=== PATIENT | male | born 1935 | race Caucasian/White ===

== ENCOUNTER 2017-03-18 09:42 | Inpatient (IN) | payer MEDICARE, OTHER ==
[~2017-03-18] VITALS: Ht 185.4 cm; Wt 87.1 kg
[~2017-03-18 09:42] MED LIST: B-121000 MCG PO; CEFDINIR300 MG PO; CO Q-1010 MG PO; ENBREL50 MG/1 ML INJ; FOLIC ACID1 MG PO; JOINT ADVANTAGE GOLD PO; METHOTREXATE2.5 MG PO; MONTELUKAST SOD10 MG PO; PREDNISONE5 MG PO; SPIRIVA18 MCG INH; SUPER B COMPLE1 EACH PO; TRIAMCINOLONE A15 G4 TP; VITAMIN D1000 UNI1 PO; XARELTO20 MG PO
[2017-03-18] MEDS ORDERED: IBUPROFEN 400 MG TAB PO STA (09:55)
[2017-03-18] MEDS ORDERED: SODIUM CHLORIDE 0.9% 1000ML 1,000 ML IV STA (10:50)
[2017-03-18] MEDS ORDERED: ALBUTEROL/IPRATROPIUM 3 ML NEB NEB ONE (11:00)
[2017-03-18] MEDS ORDERED: CEFTRIAXONE SOD 1 GM VIAL IV ONE (11:00)
[2017-03-18] MEDS ORDERED: OSELTAMIVIR PHOSPHATE 75 MG CAP PO ONE (11:30)
[2017-03-18] MEDS ORDERED: AZITHROMYCIN 500MG/NS 250 ML 250 ML IV ONE (11:30)
--- NOTE | 2017-03-18 11:47 | Diagnostic Imaging Report ---
EXAM: XR CHEST 2 VIEWS DATE: 03/18/2017 9:55 AM INDICATION: COMPARISON: 04/24/2015 FINDINGS: Lines and Tubes: None Heart and Mediastinum: No acute findings. Lungs and Pleura: Minimal atelectasis/scarring in the lung bases. On the lateral view there is a retrocardiac opacity that is overall stable. Bones and Soft Tissues: No acute findings. IMPRESSION: 1. No acute cardiopulmonary findings. Signed by: Dr. Rafael Gonzales MD on 03/18/2017 11:43 AM
[2017-03-18 13:10] LABS: BASOPHILS % 0.3 % (0.0-1.0); EOSINOPHILS % 0.3 % (0.0-6.0); HEMATOCRIT 27.5 % (38.2-49.6); LYMPHOCYTES # (AUTO) 1.2 (1.0-3.2); LYMPHOCYTES % 14.5 % (18.0-39.1); MEAN CORPUSCULAR HEMOGLOBIN 29.9 pg (28-32); MEAN CORPUSCULAR HGB CONC 32.7 g/dL (31-35); MEAN CORPUSCULAR VOLUME 91.4 fL (81-99); MONOCYTES # (AUTO) 0.7 (0.2-0.8); MONOCYTES % 8.2 % (4.4-11.3); NEUTROPHILS % 75.9 % (38.7-80.0); PLATELET COUNT 93 x10e3/uL (140-360); RED BLOOD COUNT 3.01 x10e6/uL (4.3-5.7); RED CELL DISTRIBUTION WIDTH 18.5 % (11.7-14.4)
[2017-03-18] MEDS ORDERED: SODIUM CHLORIDE 0.9% 1000ML 1,000 ML IV SCH (13:30)
[2017-03-18 13:36] LABS: ALBUMIN 2.9 g/dL (3.5-5.0); ALBUMIN/GLOBULIN RATIO 1.2 (0.8-2.0); ANION GAP 12.5 mmol/L (8-16); CALCIUM 8.3 mg/dL (8.4-10.2); CREATININE, SERUM 1.88 mg/dL (0.72-1.25); POTASSIUM 3.5 mmol/L (3.5-5.1)
[2017-03-18 13:44] LABS: CREATINE KINASE MB 1.1 ng/mL (0.00-5.00); TROPONIN I 0.126 ng/mL (0-0.300)
[2017-03-18] MEDS ORDERED: AZITHROMYCIN 500MG/SOD CHL 0.9% 250ML BAG IV SCH (14:30)
[2017-03-18] MEDS: SODIUM CHLORIDE 0.9% 1000ML 1,000 ML IV SCH ×2 (14:55→23:22)
[2017-03-18] MEDS: ALBUTEROL SULF 0.083% NEB SOLN 3 ML NEB NEB SCH ×3 (15:00→23:00)
[2017-03-18] MEDS ORDERED: HYDROCORTISONE SOD SUCCINATE 100 MG VIAL IV ONE (15:00)
[2017-03-18] MEDS ORDERED: CENTRUM SILVER1 EAC3 PO (16:38)
[2017-03-18] MEDS: IPRATROPIUM BROMIDE 0.02% 2.5 ML NEB NEB SCH (19:00)
[2017-03-18] MEDS: HYDROCORTISONE SOD SUCCINATE 100 MG VIAL IV SCH (22:50)
[2017-03-18] MEDS: OSELTAMIVIR PHOSPHATE 75 MG CAP PO SCH (22:50)
[2017-03-19] VITALS: BP 166/101
[2017-03-19] MEDS: ALBUTEROL SULF 0.083% NEB SOLN 3 ML NEB NEB SCH ×6 (00:01→19:30)
[2017-03-19] MEDS: IPRATROPIUM BROMIDE 0.02% 2.5 ML NEB NEB SCH ×4 (01:00→19:30)
[2017-03-19] MEDS: CEFTRIAXONE SOD 1 GM VIAL IV SCH ×2 (03:53→16:11)
[2017-03-19 05:10] LABS: BASOPHILS % 0.1 % (0.0-1.0); EOSINOPHILS % 0.1 % (0.0-6.0); HEMATOCRIT 31.6 % (38.2-49.6); HEMOGLOBIN 10.1 g/dL (14.0-18.0); LYMPHOCYTES # (AUTO) 0.7 (1.0-3.2); LYMPHOCYTES % 6.7 % (18.0-39.1); MEAN CORPUSCULAR HEMOGLOBIN 29.9 pg (28-32); MEAN CORPUSCULAR VOLUME 93.5 fL (81-99); MONOCYTES # (AUTO) 0.5 (0.2-0.8); NEUTROPHILS # (AUTO) 8.8 (2.1-6.9); NEUTROPHILS % 87.5 % (38.7-80.0); PLATELET COUNT 91 x10e3/uL (140-360); RED BLOOD COUNT 3.38 x10e6/uL (4.3-5.7); RED CELL DISTRIBUTION WIDTH 18.8 % (11.7-14.4)
[2017-03-19 05:28] LABS: ANION GAP 14.4 mmol/L (8-16); CALCIUM 8.4 mg/dL (8.4-10.2); CREATININE, SERUM 1.65 mg/dL (0.72-1.25)
[2017-03-19 05:33] LABS: POTASSIUM 4.4 mmol/L (3.5-5.1)
[2017-03-19] MEDS: SODIUM CHLORIDE 0.9% 1000ML 1,000 ML IV SCH (06:28)
[2017-03-19 06:39] LABS: CREATINE KINASE MB 3.7 ng/mL (0.00-5.00); TROPONIN I 0.057 ng/mL (0-0.300)
[2017-03-19] MEDS: HYDROCORTISONE SOD SUCCINATE 100 MG VIAL IV SCH (07:00)
--- NOTE | 2017-03-19 07:32 | Diagnostic Imaging Report ---
Examination: Single AP view of the chest. COMPARISON: Chest 2 views 03/18/2017 INDICATION: Pneumonia IMPRESSION: 1. Lines and Tubes: None 2. Lungs are well-inflated. Interval development of multiple linear opacities in the left lower lung, likely representing subsegmental atelectasis. The previously described left retrocardiac opacity is not as clearly visualized in this frontal view. No other areas of consolidation. Recommend chest PA and lateral, if clinically indicated. 3. Cardiomediastinal silhouette is normal. Pulmonary vasculature is normal. 4. No acute bony abnormalities. Signed by: Dr. Franko Walker M.D. on 03/19/2017 7:29 AM
[2017-03-19] MEDS: OSELTAMIVIR PHOSPHATE 75 MG CAP PO SCH ×2 (09:00→18:46)
[2017-03-19 09:46] LABS: CHOL/HDL RATIO 3.3 (3.9-4.7)
--- NOTE | 2017-03-19 10:08 | History and Physical ---
PRIMARY CARE PHYSICIAN: Dr. Schmid. CHIEF COMPLAINT: Shortness of breath. HISTORY OF PRESENT ILLNESS: An 81-year-old man with a history of emphysema, now developing shortness of breath and cough. Here he is placed on BiPAP and he is admitted for further evaluation and management here. He does have a history of emphysema. PAST MEDICAL HISTORY: Rheumatoid arthritis, hypertension, emphysema, cigarette abuse, hearing deficit. PAST SURGICAL HISTORY: Back and colon with no history of colon cancer. ALLERGIES: Per electronic medical records. FAMILY HISTORY/SOCIAL HISTORY: The patient is a . He has 3 children. Occasional alcohol. He quit cigarettes. ALLERGIES: NO KNOWN DRUG ALLERGIES. MEDICATIONS: Per electronic medical records. REVIEW OF SYSTEMS: Denies any dizziness. PHYSICAL EXAMINATION VITAL SIGNS: Reviewed. Temperature 100.1, pulse 94, blood pressure 76/37. T max is 103.4. GENERAL APPEARANCE: A tired-appearing man resting in the bed. HEENT: Anicteric. . CARDIOVASCULAR: Normal S1 and S2. LUNGS: Mildly coarse reduced breath sounds throughout. No wheezing. ABDOMEN: Soft and nontender. Nondistended. EXTREMITIES: There is no edema or calf tenderness. NEUROLOGIC: Alert and oriented x3. Moving all extremities. SKIN: Dry. PSYCHIATRIC: Flat affect. LABS: Reviewed. MEDICATIONS: Reviewed. ASSESSMENT AND PLAN: An 81-year-old man. 1. Severe sepsis with acute kidney injury. Will continue antibiotics and give fluids as needed. 2. Acute exacerbation of emphysema. Will continue oxygen support and BiPAP support. 3. Acute respiratory failure/ positive influenza screen. Will use Tamiflu and use antibiotics . Continue BiPAP support. Pulmonary consultation. Will obtain sputum cultures and blood cultures. 4. Hypernatremia, resolving. 5. Hyperglycemia. Will screen for diabetes. 6. Acute kidney injury. Continue to follow. Seems to be improving. 7. Over weight state. Will screen for diabetes . 8. Prophylaxis: Will use heparin and Pepcid. DISPOSITION: Monitor closely. Continue BiPAP support. Pulmonary consultation. Job#: [id number]
[2017-03-19] MEDS: AZITHROMYCIN 500MG/NS 250 ML 250 ML IV SCH (12:36)
[2017-03-19 13:28] LABS: CREATINE KINASE MB 3.4 ng/mL (0.00-5.00); TROPONIN I 0.043 ng/mL (0-0.300)
[2017-03-19 16:45] VITALS: BP 138/72
[2017-03-19 17:30] VITALS: BP_SYST 138; BP_SYST 142; BP_DIAS 72; BP_DIAS 76
[2017-03-19 18:00] VITALS: BP 155/75
[2017-03-19] MEDS: FAMOTIDINE 20 MG/2 ML VIAL IV SCH (18:39)
[2017-03-19] MEDS: MONTELUKAST SODIUM 10 MG TAB PO SCH (18:39)
[2017-03-19] MEDS: ALPRAZOLAM 0.25 MG TAB PO SCH (21:00)
[2017-03-19] MEDS ORDERED: HEPARIN SOD (PORCINE) 5,000 UNIT/ML VIAL SC SCH (21:00)
[2017-03-19] MEDS: METHYLPREDNISOLONE SOD SUCC 40 MG/ML VIAL IV SCH (21:00)
[2017-03-20] VITALS: BP 125/61
[2017-03-20] MEDS: IPRATROPIUM BROMIDE 0.02% 2.5 ML NEB NEB SCH ×4 (00:01→19:45)
[2017-03-20] MEDS: CEFTRIAXONE SOD 1 GM VIAL IV SCH ×3 (01:00→12:20)
[2017-03-20] MEDS: ALBUTEROL SULF 0.083% NEB SOLN 3 ML NEB NEB SCH ×5 (03:01→19:45)
[2017-03-20] MEDS: ALPRAZOLAM 0.25 MG TAB PO SCH ×3 (06:00→21:05)
--- NOTE | 2017-03-20 06:44 | Diagnostic Imaging Report ---
CHEST 2 VIEWS, Technique: CHEST 2 VIEWS Comparison: 03/19/2017 Clinical history: Dyspnea, congestion DISCUSSION: Right costophrenic angle is excluded. Otherwise stable appearance of the heart, mediastinum, lungs and pleural spaces. Unchanged hyperinflation with bibasilar linear areas of scarring/atelectasis. IMPRESSION: Stable chest without acute abnormality Signed by: Dr Suzanna Covington MD on 03/20/2017 6:40 AM
[2017-03-20 06:50] LABS: HEMATOCRIT 27.1 % (38.2-49.6); HEMOGLOBIN 8.6 g/dL (14.0-18.0); LYMPHOCYTES # (AUTO) 0.3 (1.0-3.2); MEAN CORPUSCULAR HEMOGLOBIN 29.4 pg (28-32); MEAN CORPUSCULAR HGB CONC 31.7 g/dL (31-35); MEAN CORPUSCULAR VOLUME 92.5 fL (81-99); MONOCYTES # (AUTO) 0.2 (0.2-0.8); MONOCYTES % 2.4 % (4.4-11.3); NEUTROPHILS # (AUTO) 6.5 (2.1-6.9); NEUTROPHILS % 92.7 % (38.7-80.0); PLATELET COUNT 85 x10e3/uL (140-360); RED BLOOD COUNT 2.93 x10e6/uL (4.3-5.7); RED CELL DISTRIBUTION WIDTH 18.7 % (11.7-14.4)
[2017-03-20 07:09] LABS: ALBUMIN 2.7 g/dL (3.5-5.0); ANION GAP 13.3 mmol/L (8-16); CALCIUM 7.8 mg/dL (8.4-10.2); CREATININE, SERUM 1.49 mg/dL (0.72-1.25); POTASSIUM 4.3 mmol/L (3.5-5.1)
[2017-03-20] MEDS: TIOTROPIUM 18 MCG INH POWDER INH SCH (07:15)
--- NOTE | 2017-03-20 07:17 | Consultation ---
DATE OF CONSULTATION: PULMONARY/CRITICAL CARE CONSULTATION REFERRING PHYSICIAN: Dr. Froylan Hernandez ATTENDING PHYSICIAN: Dr. Urias HISTORY OF PRESENT ILLNESS: The patient is an 81-year-old man. He has a vague history of respiratory problems. He uses a nebulizer at home along with some type of rescue inhaler. He does not have oxygen at home. For the past several weeks, he has had increased cough and congestion. He complains of more malaise. He went to see his primary doctor several times and received antibiotics without much benefit. He now comes to the emergency department complaining of worsening dyspnea and cough. He has no fevers. PAST SURGICAL HISTORY: 1. Status post back surgery. 2. Status post colon surgery. 3. Status post eye surgery. MEDICAL HISTORY: 1. Rheumatoid arthritis that has been treated with methotrexate and Enbrel. 2. History of unspecified respiratory problems. Patient denies any prior cardiac history. ALLERGIES: THERE ARE NO KNOWN DRUG ALLERGIES. SOCIAL HISTORY: The patient quit smoking 25 years ago. He is not a drinker. FAMILY HISTORY: Family history is noncontributory. REVIEW OF SYSTEMS: The patient does not have any fevers. He is not complaining of headache or sinus congestion. There is no sore throat. He is not having any neck pain. He does not have any chest pain or discomfort. He does note some dyspnea and some cough. There is no abdominal pain. There is no nausea or vomiting. There is no leg edema. PHYSICAL EXAMINATION: VITAL SIGNS: Patient is afebrile. The vital signs are stable. HEENT: Showed no facial swelling or erythema. The nasal mucosa is normal. The oropharynx is normal. LYMPHATIC: Showed no submandibular, cervical, or supraclavicular adenopathy. CARDIAC: Revealed a regular rate and rhythm with a normal S1 and S2. There are no murmurs or rubs. CHEST: Auscultation of lungs revealed prolonged expiratory phase with rhonchus breath sounds bilaterally. ABDOMEN: Soft and nontender. There is no rebound or guarding. EXTREMITIES: There is no leg edema or calf tenderness. There is no cyanosis or clubbing. SKIN: Showed no rashes. NEUROLOGICAL: Showed no focal abnormalities. LABORATORY DATA: Nasal swab showed influenza. The creatinine is 1.65. Other electrolytes are within normal limits. The BNP is 597. Hemoglobin is 10.1. IMPRESSIONS: 1. Influenza. 2. Chronic obstructive pulmonary disease with acute exacerbation. 3. Possible congestive heart failure as indicated by the elevated B-type natriuretic peptide. PLAN: 1. Tamiflu. 2. Low-dose Solu-Medrol. 3. Bronchodilators. 4. Echocardiogram. 5. Possible cardiology evaluation. Thank you. Job#: [id number]
[2017-03-20] MEDS: FAMOTIDINE 20 MG/2 ML VIAL IV SCH ×3 (08:35→17:00)
[2017-03-20] MEDS: METHYLPREDNISOLONE SOD SUCC 40 MG/ML VIAL IV SCH ×3 (08:35→21:05)
[2017-03-20] MEDS: RIVAROXABAN 20 MG TABLET PO SCH (08:35)
[2017-03-20] MEDS: FOLIC ACID 1 MG TAB PO SCH (08:35)
--- NOTE | 2017-03-20 08:45 | Progress Note ---
DATE: March 20, 2017 PULMONARY PROGRESS NOTE The patient feels better today. He is off the BiPAP and on a nasal cannula. He has less congestion and less cough. OBJECTIVE VITAL SIGNS: Stable. The patient is afebrile. HEENT: Shows no facial swelling or erythema. The oral mucosa is normal. LYMPHATICS: Shows no submandibular, cervical or supraclavicular adenopathy. CARDIAC: Reveals a regular rate and rhythm with a normal S1 and S2. There are no murmurs or rubs. LUNGS: Auscultation of the lungs reveal prolonged expiratory phase, but clear breath sounds bilaterally. ABDOMEN: Soft and nontender. There is no rebound or guarding. EXTREMITIES: Shows no leg edema or calf tenderness. There is no cyanosis or clubbing. SKIN: Shows no rashes. NEUROLOGICAL: Shows no focal abnormalities. IMPRESSION 1. Influenza. 2. Chronic obstructive pulmonary disease with acute exacerbation. 3. Elevated BNP that has improved. PLAN 1. Continue Tamiflu and antibiotics. 2. Taper steroids. 3. Await echocardiogram. 4. Wean oxygen. 5. Bronchodilators. Job#: [id number] [place]
[2017-03-20 09:45] VITALS: BP 140/76
[2017-03-20] MEDS: OSELTAMIVIR PHOSPHATE 75 MG CAP PO SCH ×2 (10:19→17:00)
[2017-03-20] MEDS: AZITHROMYCIN 500MG/NS 250 ML 250 ML IV SCH (13:38)
[2017-03-20 14:57] VITALS: BP 155/79
[2017-03-20 15:50] LABS: ABG HCO3 19 mmol/L (23-28); ABG PCO2 36 mmHg (41-51); ABG PH 7.34 (7.31-7.41); ABG PO2 104 mmHg (80-105)
[2017-03-20] MEDS: RISPERIDONE 0.5 MG TAB PO SCH (17:00)
[2017-03-20] MEDS: MONTELUKAST SODIUM 10 MG TAB PO SCH (17:00)
[2017-03-20] MEDS: GUAIFENESIN 600 MG TAB PO PRN (17:06)
[2017-03-20 20:00] VITALS: BP 169/76
[2017-03-20] MEDS ORDERED: ZIPRASIDONE 20 MG VIAL IM PRN (23:15)
[2017-03-20] MEDS ORDERED: LORAZEPAM INJ 2 MG/ML VIAL IV PRN (23:15)
[2017-03-21] MEDS: IPRATROPIUM BROMIDE 0.02% 2.5 ML NEB NEB SCH ×4 (00:10→19:42)
[2017-03-21] MEDS: ALBUTEROL SULF 0.083% NEB SOLN 3 ML NEB NEB SCH ×7 (00:10→23:00)
[2017-03-21] MEDS: CEFTRIAXONE SOD 1 GM VIAL IV SCH ×2 (01:00→12:36)
[2017-03-21] MEDS ORDERED: ZIPRASIDONE 20 MG VIAL IM STA (05:48)
[2017-03-21] MEDS ORDERED: LORAZEPAM INJ 2 MG/ML VIAL IV ONE (06:00)
[2017-03-21] MEDS: TIOTROPIUM 18 MCG INH POWDER INH SCH (06:00)
[2017-03-21] MEDS: ALPRAZOLAM 0.25 MG TAB PO SCH (06:00)
[2017-03-21 07:22] LABS: HEMATOCRIT 29.6 % (38.2-49.6); HEMOGLOBIN 9.3 g/dL (14.0-18.0); LYMPHOCYTES # (AUTO) 0.3 (1.0-3.2); LYMPHOCYTES % 4.5 % (18.0-39.1); MEAN CORPUSCULAR HEMOGLOBIN 29.2 pg (28-32); MEAN CORPUSCULAR HGB CONC 31.4 g/dL (31-35); MEAN CORPUSCULAR VOLUME 93.1 fL (81-99); MONOCYTES # (AUTO) 0.1 (0.2-0.8); MONOCYTES % 1.4 % (4.4-11.3); NEUTROPHILS % 93.6 % (38.7-80.0); PLATELET COUNT 91 x10e3/uL (140-360); RED BLOOD COUNT 3.18 x10e6/uL (4.3-5.7); RED CELL DISTRIBUTION WIDTH 18.1 % (11.7-14.4)
[2017-03-21 07:44] LABS: ANION GAP 15.2 mmol/L (8-16); CALCIUM 8.3 mg/dL (8.4-10.2); CREATININE, SERUM 1.43 mg/dL (0.72-1.25); MAGNESIUM 1.9 MG/DL (1.3-2.1); POTASSIUM 4.2 mmol/L (3.5-5.1)
[2017-03-21] MEDS: METHYLPREDNISOLONE SOD SUCC 40 MG/ML VIAL IV SCH (08:33)
[2017-03-21] MEDS: FAMOTIDINE 20 MG/2 ML VIAL IV SCH ×2 (08:33→16:15)
[2017-03-21] MEDS: FOLIC ACID 1 MG TAB PO SCH (08:52)
[2017-03-21] MEDS: RIVAROXABAN 20 MG TABLET PO SCH (09:00)
[2017-03-21] MEDS ORDERED: ZIPRASIDONE 20 MG VIAL IM NR (10:15)
[2017-03-21] MEDS: OSELTAMIVIR PHOSPHATE 75 MG CAP PO SCH ×2 (10:17→16:27)
[2017-03-21] MEDS: RISPERIDONE 0.5 MG TAB PO SCH ×2 (10:17→16:27)
[2017-03-21] MEDS: AZITHROMYCIN 500MG/NS 250 ML 250 ML IV SCH (12:36)
[2017-03-21] MEDS ORDERED: AZITHROMYCIN 250 MG TAB PO SCH (12:45)
[2017-03-21] MEDS ORDERED: DEXTROSE 50% SYRINGE 50 ML IV PRN (12:45)
[2017-03-21] MEDS: CEFUROXIME AXETIL 250 MG TAB PO SCH ×2 (14:24→21:00)
[2017-03-21] MEDS: ALPRAZOLAM 0.25 MG TAB PO PRN (14:25)
--- NOTE | 2017-03-21 15:15 | Diagnostic Imaging Report ---
History:Agitation, confusion Comparison studies:MRI brain 04/26/2015 Technique: Axial images were obtained from the skull base to the vertex. Coronal and sagittal images reconstructed from the axial data. Intravenous contrast: None Findings: Scalp/skull: No abnormalities. Extra-axial spaces: No masses. No fluid collections. Brain sulci: Mildly prominent. Ventricles: Mild compensatory dilatation. No hydrocephalus. Parenchyma: Cortical based hypodensity at the right lateral lingula/cuneus, right mid frontal gyrus and right superior parietal lobule with associated volume loss. Scattered small hypodensities in the supratentorial white matter are small vessel ischemic changes. No masses, hemorrhage or acute cortical vascular insults. Sellar/suprasellar region: No abnormalities. Craniocervical junction: Patent foramen magnum. No Chiari one malformation. Incidental findings: Atherosclerotic calcifications in the carotid siphons and vertebral . Impression: No acute abnormalities. Chronic findings: 1. Mild generalized volume loss. 2. Mild supratentorial white matter small vessel ischemic changes. 3. 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 on 03/21/2017 3:11 PM
[2017-03-21] MEDS: MONTELUKAST SODIUM 10 MG TAB PO SCH (16:27)
[2017-03-21] MEDS: INSULIN LISPRO 100 UNIT/1 ML 3ML VIAL SQ SCH ×2 (16:30→21:00)
[2017-03-21] MEDS ORDERED: LORAZEPAM INJ 2 MG/ML VIAL IM ONE (16:45)
[2017-03-21] MEDS: PREDNISONE 10 MG TAB PO SCH (17:00)
[2017-03-21] MEDS ORDERED: PREDNISONE 20 MG TAB PO SCH ×2 (17:00)
[2017-03-21] MEDS ORDERED: ZIPRASIDONE 20 MG VIAL IM PRN ×2 (17:30→17:45)
--- NOTE | 2017-03-21 18:19 | Consultation ---
DATE OF CONSULTATION: March 21, 2017 PSYCHIATRIC INITIAL CONSULT REASON FOR CONSULTATION: For treatment and evaluation of the patient's confusion and agitation. HISTORY OF PRESENTING ILLNESS: The patient is an 81-year-old male who is admitted to [facility] due to multiple medical problems. Psychiatric consult is called to evaluate the patient's confusion and agitation. Upon evaluation today, the patient is found to be lying on his bed. He is alert and awake, but confused. He is very restless. He is trying to pick his skin and trying to pull his IV lines out. He is hard to redirect. He does not know where he is. He does not know what events led to his current hospitalization. He is not able to participate for a complete psychiatric assessment at this time. Collateral information is obtained from his daughter who was present in the room during this assessment. Daughter reports that the patient has been increasingly confused and agitated since he has been in the hospital. He has been paranoid and trying to hurt the staff. He is also making suicidal threats. Daughter reports that the patient is not confused at his baseline. This confusion has only started since he has been in the hospital. Daughter also reported that the patient is usually independent in his daily activities and is able to take care of himself alone. As per the nursing staff, the patient has been combative, agitated and threatening the staff, and the family members he is not redirectable. PAST PSYCHIATRIC HISTORY: The patient has never been treated by a psychiatrist in the past. He has never been diagnosed with dementia. He drinks alcohol socially. FAMILY HISTORY: The patient does not have any family history of psychiatric illness. SOCIAL HISTORY: The patient currently lives alone and is independent in his daily activities. CURRENT LABS: WBC 6.42, hemoglobin 9.3, hematocrit 29.6, platelets 91,000. Sodium 141. Potassium 4.2. Chloride 111. Carbon dioxide 19. BUN 24, creatinine 1.43. AST 45, ALT 29, alkaline phosphatase 204. CURRENT IMAGING: CT scan of the brain is unremarkable for any acute changes. CURRENT MEDICATIONS: 1. Albuterol nebulizer 2. Xanax 0.25 q.8 h. p.r.n. 3. Azithromycin. 4. Ceftin. 5. Pepcid. 6. Folic acid. 7. Mucinex. 8. Humalog. 9. Tamiflu. 10. Prednisone. 11. Risperdal 0.5 mg p.o. b.i.d. MENTAL STATUS EXAMINATION: The patient is an elderly male who is currently lying on his bed. He is alert, awake and oriented to only self. He is very restless and easily agitated. He is confused. He is not able to participate for a complete mental status examination at this time. IMPRESSION AXIS I: Unspecified psychosis; delirium; multifactorial, most likely because of an infection; Rule out dementia. AXIS II: Deferred. AXIS III: As per medical history. AXIS IV: Severe. AXIS V: GAF is 25. RECOMMENDATIONS: Based on this clinical assessment, the patient appears to be confused and delirious due to multiple medical problems. Following are the recommendations for now: 1. Add Seroquel 25 mg p.o. nightly. 2. Add Seroquel 25 mg p.o. q.6 h. p.r.n. for agitation. 3. Discontinue Risperdal. 4. Add Geodon 10 mg IM q.6 h. p.r.n. for agitation. 5. We will continue to follow this patient during his inpatient stay for management of his psychiatric symptoms. Thank you very much for this consult. Job#: [id number]
[2017-03-21 20:30] VITALS: BP 143/68
[2017-03-21] MEDS ORDERED: QUETIAPINE FUMARATE 25 MG TAB PO SCH (21:00)
[2017-03-22] VITALS: BP 156/82
[2017-03-22] MEDS: IPRATROPIUM BROMIDE 0.02% 2.5 ML NEB NEB SCH ×4 (01:00→19:05)
[2017-03-22] MEDS: ALBUTEROL SULF 0.083% NEB SOLN 3 ML NEB NEB SCH ×6 (03:00→23:00)
[2017-03-22] MEDS: TIOTROPIUM 18 MCG INH POWDER INH SCH (06:00)
[2017-03-22 06:48] LABS: HEMATOCRIT 29.9 % (38.2-49.6); HEMOGLOBIN 9.5 g/dL (14.0-18.0); LYMPHOCYTES # (AUTO) 1.1 (1.0-3.2); LYMPHOCYTES % 14.5 % (18.0-39.1); MEAN CORPUSCULAR HEMOGLOBIN 29.1 pg (28-32); MEAN CORPUSCULAR HGB CONC 31.8 g/dL (31-35); MEAN CORPUSCULAR VOLUME 91.7 fL (81-99); MONOCYTES # (AUTO) 0.1 (0.2-0.8); MONOCYTES % 0.7 % (4.4-11.3); NEUTROPHILS # (AUTO) 6.1 (2.1-6.9); NEUTROPHILS % 83.7 % (38.7-80.0); PLATELET COUNT 103 x10e3/uL (140-360); RED BLOOD COUNT 3.26 x10e6/uL (4.3-5.7); RED CELL DISTRIBUTION WIDTH 18.1 % (11.7-14.4)
[2017-03-22 07:11] LABS: ANION GAP 12.2 mmol/L (8-16); CALCIUM 8.6 mg/dL (8.4-10.2); CREATININE, SERUM 1.18 mg/dL (0.72-1.25); POTASSIUM 4.2 mmol/L (3.5-5.1)
[2017-03-22] MEDS: INSULIN LISPRO 100 UNIT/1 ML 3ML VIAL SQ SCH ×4 (07:30→21:00)
[2017-03-22 08:07] VITALS: BP 165/80
[2017-03-22] MEDS ORDERED: FUROSEMIDE 40 MG TAB PO ONE (08:45)
[2017-03-22] MEDS: FOLIC ACID 1 MG TAB PO SCH (09:00)
[2017-03-22] MEDS: PREDNISONE 10 MG TAB PO SCH ×2 (09:00→17:00)
[2017-03-22] MEDS: LEVOFLOXACIN 500 MG TAB PO SCH (09:00)
[2017-03-22] MEDS: ASCORBIC ACID 500 MG TAB PO SCH ×2 (09:00→17:00)
[2017-03-22] MEDS: MULTIVITAMINS/MINERALS TAB PO SCH (09:00)
[2017-03-22] MEDS: OSELTAMIVIR PHOSPHATE 75 MG CAP PO SCH ×2 (09:00→17:00)
[2017-03-22] MEDS ORDERED: ZIPRASIDONE 20 MG VIAL IM STA (11:19)
[2017-03-22 12:00] VITALS: BP 159/99
[2017-03-22] MEDS: QUETIAPINE FUMARATE 25 MG TAB PO PRN (12:15)
[2017-03-22] MEDS: QUETIAPINE FUMARATE 25 MG TAB PO SCH ×2 (12:15→21:00)
[2017-03-22] MEDS: LORAZEPAM INJ 2 MG/ML VIAL IM PRN ×2 (13:43→21:41)
[2017-03-22 16:00] VITALS: BP 155/67
[2017-03-22] MEDS: FAMOTIDINE 20 MG TAB PO SCH (16:30)
[2017-03-22] MEDS: MONTELUKAST SODIUM 10 MG TAB PO SCH (17:00)
[2017-03-22] MEDS: FERROUS SULFATE 325 MG TAB PO SCH (17:00)
[2017-03-22] MEDS: HALOPERIDOL LACTATE 5 MG/ML VIAL IM PRN (17:15)
[2017-03-22] MEDS ORDERED: ACETAMINOPHEN 325 MG SUPP PR PRN (17:30)
--- NOTE | 2017-03-22 18:57 | Diagnostic Imaging Report ---
PROCEDURE: A single AP view of the chest. COMPARISON: Patients [facility], , CHEST 2 VIEWS, 03/20/2017, 6:24. INDICATIONS: bacteria in sputum FINDINGS: Suboptimal exam, as bilateral costophrenic angles are not included in the image. Lines/tubes: None. Lungs: The lungs are well inflated and visualized portions are clear. There is no evidence of consolidation or pulmonary edema. Pleura: There is no pleural effusion or pneumothorax. Heart and mediastinum: The heart and the mediastinum are unremarkable. Bones: No acute bony abnormality. IMPRESSION: 1. Limited exam, as described. No acute abnormalities. Franko Walker M.D. Dictated by: Franko Walker M.D. on 03/22/2017 at 19:06 Electronically approved by: Franko Walker M.D. on 03/22/2017 at 19:06
[2017-03-22 20:00] VITALS: BP 110/58
[2017-03-23] MEDS ORDERED: ACETAMINOPHEN 325 MG SUPP PR PRN
[2017-03-23 00:10] VITALS: BP 123/75
[2017-03-23] MEDS: HALOPERIDOL LACTATE 5 MG/ML VIAL IM PRN ×2 (00:30→20:35)
[2017-03-23] MEDS: IPRATROPIUM BROMIDE 0.02% 2.5 ML NEB NEB SCH ×4 (03:15→19:00)
[2017-03-23] MEDS: ALBUTEROL SULF 0.083% NEB SOLN 3 ML NEB NEB SCH ×6 (03:15→23:00)
[2017-03-23] MEDS: LORAZEPAM INJ 2 MG/ML VIAL IM PRN ×3 (03:41→22:00)
[2017-03-23 04:00] VITALS: BP 150/80
[2017-03-23 06:22] LABS: BASOPHILS % 0.3 % (0.0-1.0); EOSINOPHILS % 0.5 % (0.0-6.0); HEMATOCRIT 33.2 % (38.2-49.6); HEMOGLOBIN 10.4 g/dL (14.0-18.0); LYMPHOCYTES # (AUTO) 1.6 (1.0-3.2); LYMPHOCYTES % 21.6 % (18.0-39.1); MEAN CORPUSCULAR HEMOGLOBIN 29.5 pg (28-32); MEAN CORPUSCULAR HGB CONC 31.3 g/dL (31-35); MEAN CORPUSCULAR VOLUME 94.1 fL (81-99); MONOCYTES # (AUTO) 0.2 (0.2-0.8); MONOCYTES % 2.9 % (4.4-11.3); NEUTROPHILS # (AUTO) 5.6 (2.1-6.9); NEUTROPHILS % 74.4 % (38.7-80.0); PLATELET COUNT 83 x10e3/uL (140-360); RED BLOOD COUNT 3.53 x10e6/uL (4.3-5.7); RED CELL DISTRIBUTION WIDTH 18.1 % (11.7-14.4)
[2017-03-23 06:53] LABS: ANION GAP 16.1 mmol/L (8-16); CALCIUM 8.5 mg/dL (8.4-10.2); CREATININE, SERUM 1.33 mg/dL (0.72-1.25); POTASSIUM 4.1 mmol/L (3.5-5.1)
[2017-03-23] MEDS: FAMOTIDINE 20 MG TAB PO SCH ×2 (07:30→16:30)
[2017-03-23] MEDS: INSULIN LISPRO 100 UNIT/1 ML 3ML VIAL SQ SCH ×4 (07:30→21:00)
[2017-03-23 07:46] VITALS: BP 145/82
[2017-03-23] MEDS: FERROUS SULFATE 325 MG TAB PO SCH ×2 (08:00→17:00)
[2017-03-23] MEDS: TIOTROPIUM 18 MCG INH POWDER INH SCH ×2 (08:20→08:22)
[2017-03-23] MEDS: PREDNISONE 10 MG TAB PO SCH ×2 (09:00→17:00)
[2017-03-23] MEDS: QUETIAPINE FUMARATE 25 MG TAB PO SCH ×2 (09:00→20:35)
[2017-03-23] MEDS: FOLIC ACID 1 MG TAB PO SCH (09:00)
[2017-03-23] MEDS: MULTIVITAMINS/MINERALS TAB PO SCH (09:00)
[2017-03-23] MEDS: OSELTAMIVIR PHOSPHATE 75 MG CAP PO SCH ×2 (09:00→17:00)
[2017-03-23] MEDS: ASCORBIC ACID 500 MG TAB PO SCH ×2 (09:00→17:00)
[2017-03-23] MEDS: LEVOFLOXACIN 500 MG TAB PO SCH (09:00)
[2017-03-23 12:38] VITALS: BP 145/83
[2017-03-23] MEDS: CEFEPIME HCL 1 GM VIAL IV SCH ×2 (12:50→22:00)
[2017-03-23] MEDS: LEVOFLOXACIN 750MG/D5W 150ML 150 ML IV SCH (12:55)
[2017-03-23] MEDS ORDERED: SODIUM CHLORIDE 0.9% 250ML 250 ML ONE (14:16)
[2017-03-23 15:46] VITALS: BP 163/82
[2017-03-23] MEDS: MONTELUKAST SODIUM 10 MG TAB PO SCH (17:00)
[2017-03-23 20:07] VITALS: BP 166/93
[2017-03-23] MEDS: QUETIAPINE FUMARATE 25 MG TAB PO PRN (20:35)
[2017-03-23] MEDS: ALPRAZOLAM 0.25 MG TAB PO PRN (20:35)
[2017-03-23] MEDS ORDERED: TOBRAMYCIN 40 MG/ML 2ML VIAL NEB SCH (21:00)
[2017-03-24 00:52] VITALS: BP 168/83
[2017-03-24] MEDS: HALOPERIDOL LACTATE 5 MG/ML VIAL IM PRN (01:17)
[2017-03-24] MEDS: LORAZEPAM INJ 2 MG/ML VIAL IM PRN ×2 (02:49→22:43)
[2017-03-24] MEDS: ALBUTEROL SULF 0.083% NEB SOLN 3 ML NEB NEB SCH ×6 (03:15→23:50)
[2017-03-24] MEDS: IPRATROPIUM BROMIDE 0.02% 2.5 ML NEB NEB SCH ×4 (03:15→20:05)
[2017-03-24 04:00] VITALS: BP 148/76
[2017-03-24 06:49] LABS: BASOPHILS % 0.5 % (0.0-1.0); EOSINOPHILS # (AUTO) 0.1 (0.0-0.4); EOSINOPHILS % 0.9 % (0.0-6.0); HEMATOCRIT 33.5 % (38.2-49.6); HEMOGLOBIN 10.7 g/dL (14.0-18.0); LYMPHOCYTES # (AUTO) 1.3 (1.0-3.2); LYMPHOCYTES % 19.6 % (18.0-39.1); MEAN CORPUSCULAR HEMOGLOBIN 29.6 pg (28-32); MEAN CORPUSCULAR HGB CONC 31.9 g/dL (31-35); MEAN CORPUSCULAR VOLUME 92.8 fL (81-99); MONOCYTES # (AUTO) 0.3 (0.2-0.8); MONOCYTES % 4.1 % (4.4-11.3); NEUTROPHILS # (AUTO) 4.9 (2.1-6.9); NEUTROPHILS % 74.3 % (38.7-80.0); PLATELET COUNT 83 x10e3/uL (140-360); RED BLOOD COUNT 3.61 x10e6/uL (4.3-5.7); RED CELL DISTRIBUTION WIDTH 17.5 % (11.7-14.4)
[2017-03-24] MEDS: CEFEPIME HCL 1 GM VIAL IV SCH ×3 (07:02→21:31)
[2017-03-24 07:09] LABS: ANION GAP 19.1 mmol/L (8-16); CALCIUM 8.5 mg/dL (8.4-10.2); CREATININE, SERUM 1.56 mg/dL (0.72-1.25); POTASSIUM 4.1 mmol/L (3.5-5.1)
[2017-03-24] MEDS: FAMOTIDINE 20 MG TAB PO SCH ×2 (07:30→16:30)
[2017-03-24] MEDS: INSULIN LISPRO 100 UNIT/1 ML 3ML VIAL SQ SCH ×4 (07:30→20:22)
[2017-03-24 07:39] VITALS: BP 123/79
[2017-03-24] MEDS: TIOTROPIUM 18 MCG INH POWDER INH SCH (07:55)
[2017-03-24] MEDS: FERROUS SULFATE 325 MG TAB PO SCH ×2 (08:00→16:47)
[2017-03-24] MEDS: ASCORBIC ACID 500 MG TAB PO SCH ×2 (09:00→16:47)
[2017-03-24] MEDS: PREDNISONE 10 MG TAB PO SCH ×2 (09:00→16:47)
[2017-03-24] MEDS: QUETIAPINE FUMARATE 25 MG TAB PO SCH ×2 (09:00→21:48)
[2017-03-24] MEDS: FOLIC ACID 1 MG TAB PO SCH (09:00)
[2017-03-24] MEDS: MULTIVITAMINS/MINERALS TAB PO SCH (09:00)
[2017-03-24] MEDS ORDERED: SODIUM CHLORIDE 0.9% 1000ML 1,000 ML IV ONE (09:45)
[2017-03-24] MEDS: TOBRAMYCIN 40MG/ML 30ML MDV INH SCH ×2 (11:30→20:20)
[2017-03-24 12:00] VITALS: BP 141/84
[2017-03-24] MEDS: LEVOFLOXACIN 750MG/D5W 150ML 150 ML IV SCH ×2 (12:27→14:20)
[2017-03-24 16:06] VITALS: BP 122/72
[2017-03-24] MEDS: ACETAMINOPHEN 325 MG SUPP PR PRN (16:44)
[2017-03-24] MEDS: MONTELUKAST SODIUM 10 MG TAB PO SCH (16:47)
--- NOTE | 2017-03-24 16:55 | Diagnostic Imaging Report ---
Portable chest x-ray CPT code 19423 INDICATION: Increased congestion COMPARISON: Chest x-ray 03/20/2017 FINDINGS: Frontal view of the chest obtained at 1321 hours. The cardiac silhouette is top normal in size. Multiple EKG wires overlie the chest.. The pulmonary vascular marking are normal. The lungs are hyperinflated. No mass or infiltrate. Discoid atelectasis in the base of the left lung is no longer visualized. The costophrenic angles are sharp. There is no pneumothorax. The osseous structures are intact and normal in morphology. IMPRESSION: Stable pulmonary hyperinflation. Resolved left basilar atelectasis. No acute cardiopulmonary process. Signed by: Dr. Tate Vivar MD on 03/24/2017 4:51 PM
[2017-03-24 19:35] LABS: BILIRUBIN,URINE NEGATIVE (NEGATIVE); CLARITY,URINE CLEAR (CLEAR); COLOR,URINE AMBER (YELLOW); KETONES,URINE 2+ (NEGATIVE); LEUKOCYTE ESTERASE ,URINE NEGATIVE (NEGATIVE); NITRITE,URINE NEGATIVE (NEGATIVE); URINE UROBILINOGEN 0.2 mg/dL (0.2 - 1)
[2017-03-24 19:54] LABS: PROTEIN,URINE DIPSTICK 1+ (NEGATIVE)
[2017-03-24 20:00] VITALS: BP 152/77
[2017-03-24 20:07] LABS: RBC,URINE 0-5 /HPF (0-5); WBC,URINE (MAN) 0-5 /HPF (0-5)
[2017-03-24 20:08] LABS: BACTERIA,URINE FEW /HPF
[2017-03-24 20:11] LABS: EPITHELIAL CELLS,URINE RARE /LPF
[2017-03-25] VITALS (7 sets, daily range): BP systolic 88–126; BP diastolic 53–84
[2017-03-25] MEDS: HALOPERIDOL LACTATE 5 MG/ML VIAL IM PRN ×2 (00:33→09:20)
[2017-03-25] MEDS: IPRATROPIUM BROMIDE 0.02% 2.5 ML NEB NEB SCH ×5 (03:35→22:58)
[2017-03-25] MEDS: ALBUTEROL SULF 0.083% NEB SOLN 3 ML NEB NEB SCH ×6 (03:35→22:58)
[2017-03-25] MEDS: CEFEPIME HCL 1 GM VIAL IV SCH ×3 (05:13→21:12)
[2017-03-25] MEDS: ACETAMINOPHEN 325 MG SUPP PR PRN (05:25)
[2017-03-25 07:02] LABS: BASOPHILS % 0.3 % (0.0-1.0); EOSINOPHILS # (AUTO) 0.1 (0.0-0.4); EOSINOPHILS % 0.9 % (0.0-6.0); HEMATOCRIT 32.3 % (38.2-49.6); LYMPHOCYTES # (AUTO) 1.3 (1.0-3.2); LYMPHOCYTES % 16.7 % (18.0-39.1); MEAN CORPUSCULAR HEMOGLOBIN 29.1 pg (28-32); MEAN CORPUSCULAR VOLUME 93.9 fL (81-99); MONOCYTES # (AUTO) 0.5 (0.2-0.8); MONOCYTES % 6.1 % (4.4-11.3); NEUTROPHILS % 75.2 % (38.7-80.0); PLATELET COUNT 74 x10e3/uL (140-360); RED BLOOD COUNT 3.44 x10e6/uL (4.3-5.7); RED CELL DISTRIBUTION WIDTH 17.8 % (11.7-14.4)
[2017-03-25] MEDS: TIOTROPIUM 18 MCG INH POWDER INH SCH (07:25)
[2017-03-25] MEDS: INSULIN LISPRO 100 UNIT/1 ML 3ML VIAL SQ SCH ×4 (07:30→21:00)
[2017-03-25 07:34] LABS: CALCIUM 8.2 mg/dL (8.4-10.2); CREATININE, SERUM 1.97 mg/dL (0.72-1.25)
[2017-03-25] MEDS: TOBRAMYCIN 40MG/ML 30ML MDV INH SCH ×2 (07:35→19:20)
[2017-03-25] MEDS ORDERED: SODIUM CHLORIDE 0.9% 1000ML 1,000 ML IV ONE (08:00)
[2017-03-25] MEDS: PREDNISONE 10 MG TAB PO SCH ×2 (08:47→17:00)
[2017-03-25] MEDS: QUETIAPINE FUMARATE 25 MG TAB PO SCH ×2 (08:47→21:12)
[2017-03-25] MEDS: FAMOTIDINE 20 MG TAB PO SCH ×2 (09:07→16:30)
[2017-03-25] MEDS: MULTIVITAMINS/MINERALS TAB PO SCH (09:07)
[2017-03-25] MEDS: FOLIC ACID 1 MG TAB PO SCH (09:07)
[2017-03-25] MEDS: ASCORBIC ACID 500 MG TAB PO SCH ×2 (09:07→17:00)
[2017-03-25] MEDS: FERROUS SULFATE 325 MG TAB PO SCH ×2 (09:07→17:00)
[2017-03-25] MEDS ORDERED: SODIUM CHLORIDE 0.45% 1,000 ML IV ONE (09:45)
[2017-03-25] MEDS: MONTELUKAST SODIUM 10 MG TAB PO SCH (17:00)
--- NOTE | 2017-03-25 18:08 | Diagnostic Imaging Report ---
Portable chest x-ray CPT code 32806 INDICATION: Line placement COMPARISON: Chest x-ray 03/24/2017 FINDINGS: Frontal view of the chest obtained at 1741 hours. The cardiac silhouette is stable. Left PICC line terminates in the SVC without pneumothorax. The pulmonary vascular marking are mildly prominent, possibly due to portable technique. The lungs demonstrate increasing airspace opacities in the lower lung zones. The costophrenic angles are sharp. The osseous structures are stable. IMPRESSION: 1. Left PICC line as described above. No pneumothorax. 2. Increasing vascular congestion and airspace opacities in the lower lung zones. This could be the result of portable technique. Close interval follow-up is recommended. Signed by: Dr. Tate Vivar MD on 03/25/2017 6:05 PM
[2017-03-26] VITALS (7 sets, daily range): BP systolic 123–158; BP diastolic 61–87
[2017-03-26] MEDS: LORAZEPAM INJ 2 MG/ML VIAL IM PRN ×2 (01:13→21:25)
--- NOTE | 2017-03-26 01:59 | Consultation ---
DATE OF CONSULTATION: March 25, 2017 ROOM NUMBER: [id number]. REASON FOR CONSULTATION: To evaluate and assist in the treatment of the patient with COPD and respiratory infection. Information is gathered from the current medical record. I discussed the patient with the unit staff. The patient apparently had taken some Haldol and other sedatives and is very lethargic. He is an 81-year-old male with COPD/emphysema, who was admitted to the hospital on March 18, 2017, with increasing shortness of breath associated with productive cough. The character of the sputum is not described. At presentation, he had a white count of 7.9, his temperature was 103.4 degrees Fahrenheit. His pulse rate was 94 to 105. His respiratory rate was 20. His CBC showed a white count of 7.9. He had blood cultures drawn on March 18 that were negative. The sputum culture grew pseudomonas. A urine culture from March 24 is being processed. Blood cultures from March 24 is being processed. The patient had fevers on the and defervesced. On March 19, his temperatures went up to 100 degrees Fahrenheit. He was again afebrile until March 24 when he had 100 degrees temperature. On March 25, temperatures are up to 101.8 degrees Fahrenheit. MEDICAL HISTORY: As reported above. There is a history of rheumatoid arthritis, hypertension, tobacco abuse and hearing deficit. He has had surgery for colon cancer as well as back surgery. There is no report of kidney disease, liver disease, myocardial infarction or CVA. No report of diabetes mellitus. SOCIAL HISTORY: He quit smoking. He drinks occasionally. No report of other forms of recreational drug use. FAMILY HISTORY: Noncontributory to his current hospitalization. ALLERGIES: None known. MEDICATIONS: He is receiving treatment with levofloxacin, cefepime and nebulized tobramycin. The rest of his medications are per the medication administration report. REVIEW OF SYSTEMS: The patient is currently lethargic. He calls occasionally. No dyspnea at rest at present. No report of nausea, vomiting or diarrhea. No genitourinary complaints. No pruritus or rash. The nursing staff reports that he was very confused and somewhat anxious earlier. He has received Haldol. It is reported that he is independent at home that his confusion started a few days ago. At previous times, he has received Haldol, Ativan, Geodon, Seroquel. This morning, apparently, he received Haldol and Ativan. He is not coughing currently. No dyspnea at rest. No report of vomiting or diarrhea. No other systemic complaints reported. PHYSICAL EXAMINATION GENERAL: He is an elderly male, in bed, lethargic, in no acute distress. VITAL SIGNS: This morning temperature range from 99.1 to 101.8 degrees Fahrenheit, pulse rate up to 118, respiratory rate up to 24, blood pressure range from 88 to 108 systolic. Oxygen saturation up to 100% on oxygen by nasal cannula. SKIN: Shows diffuse old ecchymosis and superficial skin tears, especially of his upper extremities. It appears, he has herpes labialis. There is no gross pallor. No obvious icterus. NECK: Supple. CHEST: Symmetric. Breath sounds are coarse in the lung kenyon. HEART: Sounds are regular without any significant murmur. ABDOMEN: Soft. Bowel sounds are present. EXTREMITIES: There is no acute erythema of his extremities otherwise. LABORATORY DATA: His white count is 7.9, hemoglobin 10.0, platelet counts 74,000. Platelet count was 91,000 at presentation. Differentials on his white count 75% neutrophils and other major differential, 15% lymphocytes. His serum creatinine 1.9, creatinine was 1.8 at presentation, was 1.1 on March 22. Sputum culture is as reported. Urine culture is pending. Blood cultures are negative. From March 18 and March 24, blood cultures are pending. Chest x-ray reports stable pulmonary hyperinflation with resolved left basilar atelectasis. No acute pulmonary process. On March 18, chest x-ray showed no acute cardiopulmonary process. IMPRESSION AND PLAN: This 81-year-old male has chronic obstructive pulmonary disease with exacerbation. He has respiratory infection with pseudomonas. Chest x-ray is reporting no infiltrates. He has no leukocytosis. He has fevers. The etiology of his fevers is unclear. Blood and urine cultures are pending. Whether his fevers are due to intravenous line infiltration is unclear. It seems he does not have a reliable intravenous access. Other considerations would include Clostridium difficile colitis, aspiration or a new urinary tract infection. I suggest we discontinue Levaquin, continue cefepime, continue nebulized tobramycin. Levofloxacin may cause confusion in some elderly patients. Follow up on his cultures. If the fevers persist, we should add gram-positive coverage to his antibiotic treatment regimen. He should be considered for peripherally inserted central catheter line placement for reliable administration of his antibiotics. If there is diarrhea, send stool for Clostridium difficile. Consider computed tomographic scan of his chest for better understanding of his pulmonary pathology. I will discuss the patient with the primary physicians whom I thank for the consult and opportunity to participate in the patient's care. Job#: [id number]
[2017-03-26] MEDS: ALBUTEROL SULF 0.083% NEB SOLN 3 ML NEB NEB SCH ×6 (02:38→23:12)
[2017-03-26] MEDS: CEFEPIME HCL 1 GM VIAL IV SCH ×3 (05:21→21:25)
[2017-03-26 06:27] LABS: BASOPHILS % 0.2 % (0.0-1.0); EOSINOPHILS # (AUTO) 0.2 (0.0-0.4); EOSINOPHILS % 2.9 % (0.0-6.0); HEMATOCRIT 26.2 % (38.2-49.6); HEMOGLOBIN 8.3 g/dL (14.0-18.0); LYMPHOCYTES # (AUTO) 0.8 (1.0-3.2); LYMPHOCYTES % 14.1 % (18.0-39.1); MEAN CORPUSCULAR HEMOGLOBIN 30.1 pg (28-32); MEAN CORPUSCULAR HGB CONC 31.7 g/dL (31-35); MEAN CORPUSCULAR VOLUME 94.9 fL (81-99); MONOCYTES # (AUTO) 0.2 (0.2-0.8); NEUTROPHILS # (AUTO) 4.7 (2.1-6.9); NEUTROPHILS % 78.3 % (38.7-80.0); PLATELET COUNT 61 x10e3/uL (140-360); RED BLOOD COUNT 2.76 x10e6/uL (4.3-5.7); RED CELL DISTRIBUTION WIDTH 17.5 % (11.7-14.4)
[2017-03-26] MEDS: TOBRAMYCIN 40MG/ML 30ML MDV INH SCH ×2 (07:00→19:00)
[2017-03-26 07:10] LABS: ALBUMIN 1.9 g/dL (3.5-5.0); ALBUMIN/GLOBULIN RATIO 0.7 (0.8-2.0); ANION GAP 8.6 mmol/L (8-16); CALCIUM 7.3 mg/dL (8.4-10.2); CREATININE, SERUM 1.25 mg/dL (0.72-1.25); POTASSIUM 3.6 mmol/L (3.5-5.1)
[2017-03-26] MEDS: INSULIN LISPRO 100 UNIT/1 ML 3ML VIAL SQ SCH ×4 (07:30→20:35)
[2017-03-26] MEDS: IPRATROPIUM BROMIDE 0.02% 2.5 ML NEB NEB SCH ×4 (08:18→23:12)
[2017-03-26] MEDS: MULTIVITAMINS/MINERALS TAB PO SCH (08:53)
[2017-03-26] MEDS: FERROUS SULFATE 325 MG TAB PO SCH ×2 (08:53→16:48)
[2017-03-26] MEDS: ASCORBIC ACID 500 MG TAB PO SCH ×2 (08:53→16:48)
[2017-03-26] MEDS: PREDNISONE 10 MG TAB PO SCH ×2 (08:53→16:48)
[2017-03-26] MEDS: FOLIC ACID 1 MG TAB PO SCH (08:53)
[2017-03-26] MEDS: QUETIAPINE FUMARATE 25 MG TAB PO SCH ×2 (08:53→20:23)
[2017-03-26] MEDS: VALACYCLOVIR HCL 500 MG TAB PO SCH (08:53)
[2017-03-26] MEDS: FAMOTIDINE 20 MG TAB PO SCH ×2 (08:56→16:48)
[2017-03-26 09:11] LABS: FERRITIN 178.22 ng/mL (21.81-274.66)
--- NOTE | 2017-03-26 09:21 | Consultation ---
DATE OF CONSULTATION: March 26, 2017 Thank you, Dr. Urias, for this consultation. This is an 81-year-old gentleman with a past medical history including rheumatoid arthritis, hypertension, COPD, smoking, chronic back pain, status post back surgery, status post colon surgery admitted to the hospital with worsening shortness of breath, cough, congestion, fatigue, lethargy, and tiredness. At admission, the patient was in respiratory distress and required BiPAP. He was followed with ergonomics consultant and infectious disease specialist. He also is following with psychiatrist. At admission, temperature 103.4. White cell count was 7.9. He had culture, including sputum culture that grew pseudomonas. He was started on Levaquin and later on changed to cefepime, and currently tobramycin too. The patient's admission labs showed hemoglobin 9.5 and dropped to 8.3, and platelet count was 103,000 and went down to 61,000. Patient had mild nosebleed. Otherwise, no petechia, purpura, ecchymosis, or hematomas. No history of recent GI bleed. His kidney function was fine. AST and ALT were normal. PAST MEDICAL HISTORY: Rheumatoid arthritis, hypertension, smoking, COPD. PAST SURGICAL HISTORY: Back surgery, colon surgery. SOCIAL HISTORY: Patient was a smoker and now stopped smoking. Drinks alcohol occasionally. No other habits. FAMILY HISTORY: Reviewed and noncontributory. ALLERGIES: PER NURSING LIST. MEDICATIONS: Reviewed. REVIEW OF SYSTEMS: Limited because of current mental status. PHYSICAL EXAMINATION GENERAL: Patient is currently in bed lethargic. Not in acute distress. Receiving oxygen by nasal cannula. HEENT: Normocephalic and atraumatic. Sclerae pale. Conjunctivae clear. NECK: Supple. CHEST: Decreased breath sounds in the bases. CARDIOVASCULAR: Regular rate and rhythm. ABDOMEN: Soft and nontender. No visceromegaly. EXTREMITIES: No clubbing, cyanosis or edema. BOOKMOBILE CLERK: Grossly no motor or sensory deficits. SKIN: Intact. LABS AND IMAGING: Reviewed. ASSESSMENT AND PLAN: Patient with a history of multiple medical conditions. Currently, in the hospital with worsening shortness of breath and also fever. Patient had worsening thrombocytopenia during hospital admission. He was admitted with low platelet count. During hospital stay, the platelet count got worse. Likely etiology is possible medication-induced thrombocytopenia. Other possibility of chronic ITP. Platelet count low at admission. Other possibility of possible DIC. 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 RECOMMENDATIONS: Complete workup. I will check B12 and iron, ferritin folate level. Will also check heparin induced thrombocytopenia antibodies. Will check fibrinogen, prothrombin time, PT, INR, and thromboplastin time. Currently, no evidence of active bleeding. Will continue to observe closely. Try to avoid thrombocytopenic medications. Do not recommend any aspirin or Plavix at current. Patient has anemia, multifactorial anemia. Is currently on ferrous sulfate. Anemia workup is requested prior to frequent blood draws. Further recommendations as per workup. COPD. Patient will continue to follow with ergonomics consultant. Currently, on treatment. Continue remaining care. Anemia. Patient's current hemoglobin is trending down. Fever. Patient is continuing following with infectious disease specialist. RECOMMENDATIONS: Continue current care. Hypertension. Current blood pressure is controlled. Continue current care. Will continue remaining care. Will follow the patient closely. Job#: [id number] [place]
[2017-03-26 09:26] LABS: INR 1.27; PROTHROMBIN TIME 16.6 seconds (11.9-14.5)
[2017-03-26 09:27] LABS: PARTIAL THROMBOPLASTIN TIME 57.2 seconds (23.8-35.5)
[2017-03-26 09:28] LABS: FOLATE 18.6 ng/mL (7.0-15.4)
[2017-03-26 09:31] LABS: BAND NEUTROPHILS % (MANUAL) 1 %; LYMPHOCYTES % (MANUAL) 12 % (19-48); MONOCYTES % (MANUAL) 3 % (3.4-9.0); NEUTROPHILS % (MANUAL) 82 % (40-74)
[2017-03-26 09:36] LABS: ANISOCYTOSIS SLIGHT; ELLIPTOCYTE, RBC SLIGHT; HYPOCHROMASIA SLIGHT; PLATELET ESTIMATE SLIGHTLY DECREASED; PLATELET MORPHOLOGY COMMENT FEW LARGE; RBC MORPHOLOGY COMMENT NORMAL
[2017-03-26] MEDS ORDERED: CALCIUM GLUCONATE 10% INJ 9.3 MEQ in SODIUM CHLORIDE 0.9% 100 ML 100 ML IV ONE (10:10)
[2017-03-26] MEDS: TIOTROPIUM 18 MCG INH POWDER INH SCH (11:24)
--- NOTE | 2017-03-26 14:28 | Progress Note ---
DATE: INFECTIOUS DISEASE PROGRESS NOTE The patient is fairly stable. He is more alert today, more responsive although his speech is somewhat slurred. He is not coughing much. No dyspnea at rest. No vomiting, no diarrhea. No adverse medication reaction reported. In the past 24 hours, he had temperatures to 101.8 degrees Fahrenheit. His temperature currently is 98.2. He is hemodynamically stable. His skin examination shows diffuse old ecchymoses, especially of the upper extremities, with superficial skin tears. There is no gross pallor, no obvious icterus. No oropharyngeal lesions. His neck is supple. The chest is symmetric. Breath sounds are coarse in the lung kenyon. Heart sounds are regular without a significant murmur. The abdomen is soft. Bowel sounds are present. There is no acute erythema of the extremities. His white count is 5.9. His creatinine is 1.2. Respiratory culture March 19 grew pseudomonas. Urine culture March 24 is negative. Blood cultures March 24 and March 18 were negative. Chest x-ray reports hyperinflation, no acute infiltrates. IMPRESSION: He may have tracheobronchitis with respiratory infection due to pseudomonas. His temperatures seem to have trended down. His sensorium seems to be clearing. I suggest continue current management. Monitor temperatures, CBC, renal function. Continue to monitor clinical response to treatment. Job#: [id number] SONIDO
[2017-03-26] MEDS: MONTELUKAST SODIUM 10 MG TAB PO SCH (16:52)
[2017-03-26] MEDS: ALPRAZOLAM 0.25 MG TAB PO PRN (17:01)
[2017-03-26] MEDS: HALOPERIDOL LACTATE 5 MG/ML VIAL IM PRN (19:40)
[2017-03-27] VITALS (8 sets, daily range): BP systolic 124–164; BP diastolic 64–89
[2017-03-27] MEDS: LORAZEPAM INJ 2 MG/ML VIAL IM PRN ×3 (02:40→22:25)
[2017-03-27] MEDS: ALBUTEROL SULF 0.083% NEB SOLN 3 ML NEB NEB SCH ×6 (03:00→23:00)
[2017-03-27] MEDS: TIOTROPIUM 18 MCG INH POWDER INH SCH (06:00)
[2017-03-27 06:10] LABS: BASOPHILS % 0.2 % (0.0-1.0); EOSINOPHILS % 0.6 % (0.0-6.0); HEMATOCRIT 27.5 % (38.2-49.6); HEMOGLOBIN 8.8 g/dL (14.0-18.0); LYMPHOCYTES % 15.3 % (18.0-39.1); MEAN CORPUSCULAR HEMOGLOBIN 29.2 pg (28-32); MEAN CORPUSCULAR VOLUME 91.4 fL (81-99); MONOCYTES # (AUTO) 0.4 (0.2-0.8); MONOCYTES % 5.7 % (4.4-11.3); NEUTROPHILS # (AUTO) 5.1 (2.1-6.9); NEUTROPHILS % 77.4 % (38.7-80.0); PLATELET COUNT 81 x10e3/uL (140-360); RED BLOOD COUNT 3.01 x10e6/uL (4.3-5.7); RED CELL DISTRIBUTION WIDTH 17.2 % (11.7-14.4)
[2017-03-27] MEDS: TOBRAMYCIN 40MG/ML 30ML MDV INH SCH ×2 (07:00→19:00)
[2017-03-27] MEDS: IPRATROPIUM BROMIDE 0.02% 2.5 ML NEB NEB SCH ×3 (07:00→20:30)
[2017-03-27] MEDS: INSULIN LISPRO 100 UNIT/1 ML 3ML VIAL SQ SCH ×4 (07:30→21:00)
[2017-03-27 07:33] LABS: CALCIUM 8.5 mg/dL (8.4-10.2); CREATININE, SERUM 1.32 mg/dL (0.72-1.25); MAGNESIUM 1.3 MG/DL (1.3-2.1)
[2017-03-27] MEDS: CEFEPIME HCL 1 GM VIAL IV SCH ×3 (07:36→22:25)
[2017-03-27] MEDS: PREDNISONE 10 MG TAB PO SCH ×2 (08:05→18:47)
[2017-03-27] MEDS: ASCORBIC ACID 500 MG TAB PO SCH ×2 (08:05→18:47)
[2017-03-27] MEDS: FAMOTIDINE 20 MG TAB PO SCH ×2 (08:05→15:38)
[2017-03-27] MEDS: VALACYCLOVIR HCL 500 MG TAB PO SCH (08:05)
[2017-03-27] MEDS: MULTIVITAMINS/MINERALS TAB PO SCH (08:05)
[2017-03-27] MEDS: FOLIC ACID 1 MG TAB PO SCH (08:05)
[2017-03-27] MEDS: FERROUS SULFATE 325 MG TAB PO SCH ×2 (08:05→18:47)
[2017-03-27] MEDS: QUETIAPINE FUMARATE 25 MG TAB PO SCH ×2 (08:05→21:00)
--- NOTE | 2017-03-27 09:50 | Progress Note ---
DATE: March 27, 2017 Patient was seen and examined today. Patient appeared comfortable. No worsening event noted. No family member present at the time of interview. Patient is a poor historian. PHYSICAL EXAMINATION GENERAL: Alert, awake and poorly communicative. HEENT: Normocephalic and atraumatic. Sclerae pink. Conjunctivae clear. NECK: Supple. CHEST: Decreased breath sounds at the bases. CARDIOVASCULAR: Regular rate and rhythm. ABDOMEN: Soft and nontender. EXTREMITIES: No clubbing, cyanosis or edema. SATELLITE TV TECHNICIAN INSTALLER: Grossly intact. No motor or sensory deficit. SKIN: Intact. LABS AND IMAGING: Reviewed. ASSESSMENT AND PLAN: Patient with multiple medical conditions. Currently, in the hospital with worsening shortness of breath and fever. He also has thrombocytopenia and anemia. Patient's workup so far shows DIC. The patient also has worsening anemia. Anemia workup also showed anemia of chronic disease. RECOMMENDATIONS: Try to avoid frequent blood draws. Continue antibiotic treatment. Will monitor platelet count closely. Platelet transfusion before any procedure. Will also start the patient on Epogen treatment. COPD. Continue current care. Patient following with yield improvement engineer. Hypertension. Current blood pressure is controlled. Infection. Patient currently on treatment. Will follow the patient. Job#: [id number] PEARL
[2017-03-27] MEDS: SODIUM CHLORIDE 0.9% 1000ML 1,000 ML IV SCH (10:41)
--- NOTE | 2017-03-27 11:38 | Progress Note ---
DATE: March 27, 2017 INFECTIOUS DISEASE PROGRESS NOTE The patient is fairly stable. He is confused. He is responsive. His speech is slurred. He has a productive cough with ineffective respiratory clearance. No report of vomiting. No report of diarrhea. No adverse medication reaction reported otherwise. In the past 24 hours, he had temperatures up to 98.2 degrees Fahrenheit. He is hemodynamically stable. There is no pallor, no icterus, no oropharyngeal lesions. His neck is supple. The chest is symmetric. Breath sounds are coarse in the lung kenyon. Heart sounds are regular without a significant murmur. The abdomen is soft. Bowel sounds are present. There are old ecchymosis and superficial skin tears, especially of his upper extremities. His white count is 6.6. His creatinine is 1.3. Blood cultures are negative. Urine culture is negative. Respiratory culture from March 19 grew pseudomonas. IMPRESSION: He has tracheobronchitis with respiratory infection due to pseudomonas. Chest x-ray describes no infiltrates. His fevers have resolved. There is no leukocytosis. I suggest to continue current management. Monitor temperatures, CBC, renal function. Monitor clinical response to treatment. Job#: [id number]
[2017-03-27] MEDS: GUAIFENESIN 600 MG TAB PO PRN (12:03)
[2017-03-27] MEDS: ALPRAZOLAM 0.25 MG TAB PO PRN (12:03)
[2017-03-27] MEDS: QUETIAPINE FUMARATE 25 MG TAB PO PRN (15:38)
--- NOTE | 2017-03-27 17:54 | Diagnostic Imaging Report ---
Exam: Brain MRI without IV contrast History: Acute exacerbation of confusion and agitation. Comparison studies: Head CTs of 03/21/2017 and 04/24/2015. Brain MRI of 04/26/2015. Technique: 3-D T1 with axial, coronal and sagittal reformats, axial and sagittal T2 FS, axial T2*GRE, axial T1 FLAIR an axial T2 FS. Intravenous contrast: None Findings: Exam is limited by artifacts related to patient motion. Scalp: Normal in signal. No masses. Bone marrow: Normal in signal intensity. Brain volume: Mild generalized volume loss with moderate disproportionate volume loss along the right anteromedial temporal lobe. Ventricles: Mild compensatory dilatation. No hydrocephalus. Parenchyma: No mass, acute hemorrhage or acute ischemic insults. There are chronic cortical-subcortical insults in the right frontal lobe, within the right postcentral gyrus, in the right superior parietal lobule and right lateral temporal lobe in the right MCA territory and along the right lateral occipital lobe in the right PRECISION AGRICULTURE SPECIALIST territory. Additional small chronic insults in the left postcentral gyrus. A few scattered T2 FLAIR hyperintense foci in the supratentorial white matter are nonspecific but most compatible with chronic small vessel ischemic changes. Suprasellar region: No abnormalities. Craniocervical junction: Patent foramen magnum. No Chiari malformation. Vessels: Normal flow-voids in the arteries and sinuses. Incidental findings: Scattered nonspecific inflammatory mucosal thickening in the paranasal sinuses with partially opacified bilateral ethmoids and unchanged inspissated secretions throughout the left sphenoid sinus. Small fluid levels in the maxillary sinuses could be correlated for superimposed acute sinusitis. IMPRESSION: Exam is limited by artifacts related to patient motion. In spite of these limitations: 1. No acute intracranial abnormalities. 2. Inflammatory changes in the paranasal sinuses with small fluid levels in the maxillary sinuses which could be correlated for acute sinusitis. Chronic findings: 1. Mild supratentorial microvascular ischemic changes. 2. Multiple chronic cortical-subcortical insults as described. 3. Mild generalized volume loss with disproportionate volume loss along the right anteromedial temporal lobe. Signed by: Dr. Kirill Byers M.D. on 03/27/2017 5:51 PM
[2017-03-27] MEDS: MONTELUKAST SODIUM 10 MG TAB PO SCH (18:47)
[2017-03-27] MEDS: HALOPERIDOL LACTATE 5 MG/ML VIAL IM PRN (20:00)
[2017-03-28] VITALS (9 sets, daily range): BP systolic 102–160; BP diastolic 69–88
[2017-03-28] MEDS: ALBUTEROL SULF 0.083% NEB SOLN 3 ML NEB NEB SCH ×5 (01:00→19:36)
[2017-03-28] MEDS: IPRATROPIUM BROMIDE 0.02% 2.5 ML NEB NEB SCH ×4 (01:00→19:36)
[2017-03-28] MEDS: HALOPERIDOL LACTATE 5 MG/ML VIAL IM PRN ×2 (01:30→21:35)
[2017-03-28] MEDS: SODIUM CHLORIDE 0.9% 1000ML 1,000 ML IV SCH (03:27)
[2017-03-28] MEDS: LORAZEPAM INJ 2 MG/ML VIAL IM PRN ×2 (04:52→19:25)
[2017-03-28] MEDS: CEFEPIME HCL 1 GM VIAL IV SCH ×3 (05:00→21:35)
[2017-03-28] MEDS: TIOTROPIUM 18 MCG INH POWDER INH SCH (06:00)
[2017-03-28] MEDS: TOBRAMYCIN 40MG/ML 30ML MDV INH SCH ×2 (07:00→19:36)
[2017-03-28 07:21] LABS: BASOPHILS % 0.1 % (0.0-1.0); EOSINOPHILS % 0.1 % (0.0-6.0); HEMATOCRIT 27.9 % (38.2-49.6); HEMOGLOBIN 9.1 g/dL (14.0-18.0); LYMPHOCYTES % 14.9 % (18.0-39.1); MEAN CORPUSCULAR HEMOGLOBIN 29.5 pg (28-32); MEAN CORPUSCULAR HGB CONC 32.6 g/dL (31-35); MEAN CORPUSCULAR VOLUME 90.6 fL (81-99); MONOCYTES # (AUTO) 0.4 (0.2-0.8); MONOCYTES % 5.8 % (4.4-11.3); NEUTROPHILS # (AUTO) 5.5 (2.1-6.9); NEUTROPHILS % 78.7 % (38.7-80.0); PLATELET COUNT 100 x10e3/uL (140-360); RED BLOOD COUNT 3.08 x10e6/uL (4.3-5.7); RED CELL DISTRIBUTION WIDTH 16.9 % (11.7-14.4)
[2017-03-28] MEDS: FAMOTIDINE 20 MG TAB PO SCH ×2 (07:30→16:59)
[2017-03-28 07:38] LABS: ANION GAP 11.9 mmol/L (8-16); CALCIUM 8.3 mg/dL (8.4-10.2); CREATININE, SERUM 1.18 mg/dL (0.72-1.25); MAGNESIUM 1.3 MG/DL (1.3-2.1); POTASSIUM 3.9 mmol/L (3.5-5.1)
[2017-03-28] MEDS: FERROUS SULFATE 325 MG TAB PO SCH ×3 (08:00→16:59)
[2017-03-28] MEDS: INSULIN LISPRO 100 UNIT/1 ML 3ML VIAL SQ SCH ×4 (08:56→20:43)
[2017-03-28] MEDS: ASCORBIC ACID 500 MG TAB PO SCH ×2 (09:00→16:59)
[2017-03-28] MEDS: MULTIVITAMINS/MINERALS TAB PO SCH ×2 (09:00→13:03)
[2017-03-28] MEDS: FOLIC ACID 1 MG TAB PO SCH ×2 (09:00→13:03)
[2017-03-28] MEDS: VALACYCLOVIR HCL 500 MG TAB PO SCH ×2 (09:00→13:03)
[2017-03-28] MEDS: QUETIAPINE FUMARATE 25 MG TAB PO SCH (09:00)
[2017-03-28] MEDS: PREDNISONE 10 MG TAB PO SCH ×2 (09:00→16:59)
[2017-03-28 10:25] LABS: ELLIPTOCYTE, RBC SLIGHT; EOSINOPHILS % (MANUAL) 1 % (0-7); HYPOCHROMASIA SLIGHT; LYMPHOCYTES % (MANUAL) 16 % (19-48); MONOCYTES % (MANUAL) 5 % (3.4-9.0); NEUTROPHILS % (MANUAL) 76 % (40-74); PLATELET ESTIMATE SLIGHTLY DECREASED; RBC MORPHOLOGY COMMENT NORMAL
[2017-03-28 10:26] LABS: ANISOCYTOSIS SLIGHT; PLATELET MORPHOLOGY COMMENT NORMAL
[2017-03-28] MEDS: EPOETIN ALFA 10000 UNIT/ML VIAL SC SCH (10:33)
--- NOTE | 2017-03-28 13:47 | Progress Note ---
DATE: March 28, 2017 Patient seen and examined today. Patient appeared comfortable. No worsening event noted. No evidence of any bleeding. Current hemoglobin is improving and stable. No worsening shortness of breath or chest pain. PHYSICAL EXAMINATION GENERAL: Alert, awake, not communicative. HEENT: Normocephalic and atraumatic. Sclerae are pink. Conjunctivae are clear. NECK: Supple. CHEST: Decreased breath sounds at the bases. CARDIOVASCULAR: Regular rate and rhythm. ABDOMEN: Soft. EXTREMITIES: No edema. LABS AND IMAGING: Reviewed. ASSESSMENT AND PLAN 1. Patient with history of multiple medical conditions including anemia, thrombocytopenia. The patient's current hemoglobin is stable, trending up. Current platelet count is stable with no evidence of any bleeding. Patient currently on Procrit. Clinical condition is improving. At this point, recommendation is to continue current care. Will monitor the patient closely. 2. Dementia. Continue supportive care. Will follow the patient. Job#: [id number]
[2017-03-28] MEDS ORDERED: OLANZAPINE 5 MG TAB PO PRN ×2 (14:00→16:45)
--- NOTE | 2017-03-28 14:23 | Progress Note ---
DATE: March 28, 2017 PSYCHIATRIC PROGRESS NOTE Patient evaluated and events noted. Vital signs and medications reviewed, as well as labs reviewed. Patient was found to be lying on the bed with a sitter in the room. He is sleepy and a little bit drowsy, but arousable. Patient received multiple IM medications last night for agitation. He had been somewhat drowsy and did not receive his morning medication due to sedation. Patient was not seen yesterday as he was having an MRI. I was able to talk to the patient's daughter regarding possibility of inpatient psych. She states that she will think about that. Today, I discussed with the medical team, and was told that the daughter has decided not to place her father in inpatient setting. Master Technician corporate communications specialist thinks that Seroquel may be causing some agitation. At this time, medical is thinking of SNF for the patient once he gets accepted to the facility. ASSESSMENT: Unspecified psychosis/delirium, multifactorial; rule out dementia. PLAN: Discontinue Seroquel 25 mg p.o. q.12 h. Discontinue Seroquel 25 mg p.o. q.6 h. p.r.n. Reduce Ativan from 1 mg IM q.6 h. p.r.n. to 0.5 mg IM q.6 h. p.r.n. Add Zyprexa 2.5 mg p.o. q.6 h. p.r.n. Add Zyprexa 2.5 mg p.o. at bedtime. Continue with Xanax 0.25 mg p.o. q.8 h. p.r.n. Continue Haldol 2 mg IM q.6 h. p.r.n. Discussed with medical team and Dr. Petersen. DICTATED BY MÓNICA GOODMAN Job#: [id number] PEARL
--- NOTE | 2017-03-28 15:08 | Progress Note ---
DATE: March 28, 2017 INFECTIOUS DISEASE PROGRESS NOTE The patient is bedridden, elderly, frail. He is in no acute distress. He is lethargic. He is not coughing much. No dyspnea at rest. No vomiting. No diarrhea. No adverse medication reaction reported. PHYSICAL EXAMINATION VITALS: In the past 24 hours, he had temperatures up to 98.3 degrees Fahrenheit. He is hemodynamically stable. HEENT: He has diffuse oral ecchymosis and superficial skin tears. No gross pallor. No obvious icterus. No oropharyngeal lesions. NECK: Supple. CHEST: Symmetric. Breath sounds are coarse in the lung kenyon. HEART: Sounds are regular. There is no new murmur. ABDOMEN: Soft. Bowel sounds are present. EXTREMITIES: No acute erythema of the extremities. His white count is 6.9. His creatinine 1.1. There are no new significant positive cultures. IMPRESSION: He is on treatment for tracheobronchitis with respiratory infection due to pseudomonas. He is currently afebrile, though significant leukocytosis. I suggest continue his antibiotics. monitor temperature, CBC and renal function, monitor clinical response to treatment. Job#: [id number] VAS
[2017-03-28] MEDS: MONTELUKAST SODIUM 10 MG TAB PO SCH (16:59)
[2017-03-28] MEDS ORDERED: OLANZAPINE 5 MG TAB PO SCH (21:00)
[2017-03-29] VITALS (9 sets, daily range): BP systolic 136–153; BP diastolic 65–84
[2017-03-29] MEDS: IPRATROPIUM BROMIDE 0.02% 2.5 ML NEB NEB SCH ×4 (00:01→19:00)
[2017-03-29] MEDS: ALBUTEROL SULF 0.083% NEB SOLN 3 ML NEB NEB SCH ×6 (00:01→23:00)
[2017-03-29] MEDS: TIOTROPIUM 18 MCG INH POWDER INH SCH (06:00)
[2017-03-29] MEDS: CEFEPIME HCL 1 GM VIAL IV SCH ×3 (06:14→23:15)
[2017-03-29] MEDS: SODIUM CHLORIDE 0.9% 1000ML 1,000 ML IV SCH (06:14)
[2017-03-29] MEDS: INSULIN LISPRO 100 UNIT/1 ML 3ML VIAL SQ SCH ×4 (07:30→21:00)
[2017-03-29 09:05] LABS: BASOPHILS % 0.3 % (0.0-1.0); EOSINOPHILS # (AUTO) 0.1 (0.0-0.4); HEMATOCRIT 31.5 % (38.2-49.6); HEMOGLOBIN 10.3 g/dL (14.0-18.0); LYMPHOCYTES # (AUTO) 2.4 (1.0-3.2); LYMPHOCYTES % 20.7 % (18.0-39.1); MEAN CORPUSCULAR HEMOGLOBIN 29.1 pg (28-32); MEAN CORPUSCULAR HGB CONC 32.7 g/dL (31-35); MONOCYTES % 8.2 % (4.4-11.3); NEUTROPHILS % 68.9 % (38.7-80.0); PLATELET COUNT 150 x10e3/uL (140-360); RED BLOOD COUNT 3.54 x10e6/uL (4.3-5.7)
[2017-03-29] MEDS: FAMOTIDINE 20 MG TAB PO SCH ×2 (09:50→16:55)
[2017-03-29] MEDS: FOLIC ACID 1 MG TAB PO SCH (09:50)
[2017-03-29] MEDS: FERROUS SULFATE 325 MG TAB PO SCH ×2 (09:50→16:55)
[2017-03-29] MEDS: PREDNISONE 10 MG TAB PO SCH ×3 (09:51→17:12)
[2017-03-29] MEDS: ASCORBIC ACID 500 MG TAB PO SCH ×2 (09:51→16:55)
[2017-03-29] MEDS: MULTIVITAMINS/MINERALS TAB PO SCH (09:51)
[2017-03-29] MEDS: VALACYCLOVIR HCL 500 MG TAB PO SCH (09:51)
[2017-03-29 10:00] LABS: ANION GAP 12.2 mmol/L (8-16); BLOOD UREA NITROGEN 16 mg/dL (7-26); BUN/CREATININE RATIO 17 (6-25); CARBON DIOXIDE 20 mmol/L (22-29); CHLORIDE 118 mmol/L (98-107); CREATININE, SERUM 0.96 mg/dL (0.72-1.25); EST GLOMERULAR FILTRATION RATE > 60 ML/MIN (60-); GLUCOSE 134 mg/dL (74-118); POTASSIUM 3.2 mmol/L (3.5-5.1); SODIUM 147 mmol/L (136-145)
[2017-03-29 10:18] LABS: CALCIUM 6.9 mg/dL (8.4-10.2)
--- NOTE | 2017-03-29 10:35 | Progress Note ---
DATE: March 29, 2017 Patient was seen and examined today. Patient appears comfortable. No worsening events noted. Clinical condition is stable. No chest pain, headache or dizziness. PHYSICAL EXAMINATION GENERAL: Alert, awake and communicative. HEENT: Normocephalic and atraumatic. Sclerae pink. Conjunctivae clear. NECK: Supple. CHEST: Decreased breath sounds in the bases. CARDIOVASCULAR: Regular rate and rhythm. ABDOMEN: Soft and nontender. EXTREMITIES: No edema. LABS AND IMAGING: Reviewed. ASSESSMENT AND PLAN: Patient with a history of multiple medical conditions currently in the hospital with sepsis. Patient has anemia, thrombocytopenia. 1. Anemia: The patient's current hemoglobin is stable. Currently, on Procrit. Recommendation is continue current care. 2. Thrombocytopenia: Patient's platelet counts are improving. No evidence of bleeding. Recommendation is continue current care. 3. Sepsis: The patient is currently on antibiotics. Recommendation is try to avoid thrombocytopenic medications. Will continue remaining care. Will follow the patient. Job#: [id number] PEARL
[2017-03-29] MEDS ORDERED: MAGNESIUM SULFATE 2GM/50ML 50 ML IV ONE (10:45)
[2017-03-29] MEDS ORDERED: CALCIUM GLUCONATE 10% INJ 13.95 MEQ in SODIUM CHLORIDE 0.9% 100 ML 100 ML IV ONE (10:45)
[2017-03-29] MEDS ORDERED: DEXTROSE 5%/0.45% SOD CHL 1,000 ML IV SCH (10:45)
[2017-03-29] MEDS ORDERED: POTASSIUM CHLORIDE 20MEQ/100ML 200 ML IV ONE (10:45)
[2017-03-29] MEDS ORDERED: POTASSIUM CHL 40 MEQ in SODIUM CHLORIDE 0.9% 250ML 250 ML IV SCH (11:15)
[2017-03-29] MEDS: LORAZEPAM INJ 2 MG/ML VIAL IM PRN ×2 (11:27→20:30)
--- NOTE | 2017-03-29 13:47 | Progress Note ---
DATE: March 29, 2017 The patient is fairly stable. He is in no acute distress. He is not coughing much currently. No dyspnea at rest. No vomiting. No diarrhea. No overt medication reaction reported. PHYSICAL EXAMINATION VITALS: In the past 24 hours, he had temperatures up to 97.6 degrees Fahrenheit. He is hemodynamically stable. HEENT: There is no pallor. No icterus. His upper lip lesion is scabbing. NECK: Supple. CHEST: Symmetric. Breath sounds are coarse in the lung kenyon. HEART: Sounds are regular without a new murmur. ABDOMEN: Soft. Bowel sounds are present. EXTREMITIES: No acute erythema of his extremities. His white count increased from 6.9 to 11.5. His creatinine is 0.9. There are no new positive culture reports. IMPRESSION: He is on treatment for respiratory infection with pseudomonas with chronic obstructive pulmonary disease exacerbation. He has herpes labialis. He is stable from an infectious disease point. I suggest continue current management. Monitor temperature, CBC and renal function. Monitor clinical response to treatment. Job#: [id number] VAS
[2017-03-29] MEDS: MONTELUKAST SODIUM 10 MG TAB PO SCH (16:55)
[2017-03-29] MEDS: MAGNESIUM OXIDE 400 MG TAB PO SCH (16:55)
[2017-03-29] MEDS: CALCIUM CARBONATE 500 MG CHEWABLE TABS PO SCH (16:55)
[2017-03-29] MEDS: TOBRAMYCIN 40MG/ML 30ML MDV INH SCH (19:00)
[2017-03-29] MEDS: HALOPERIDOL LACTATE 5 MG/ML VIAL IM PRN (23:15)
[2017-03-30] VITALS (7 sets, daily range): BP systolic 127–193; BP diastolic 60–94
[2017-03-30] MEDS: IPRATROPIUM BROMIDE 0.02% 2.5 ML NEB NEB SCH ×3 (01:00→15:30)
[2017-03-30] MEDS: ALBUTEROL SULF 0.083% NEB SOLN 3 ML NEB NEB SCH ×4 (03:00→15:30)
[2017-03-30] MEDS: CEFEPIME HCL 1 GM VIAL IV SCH ×2 (05:30→14:55)
[2017-03-30] MEDS: HALOPERIDOL LACTATE 5 MG/ML VIAL IM PRN ×2 (05:50→18:53)
[2017-03-30 06:00] LABS: BASOPHILS % 0.3 % (0.0-1.0); EOSINOPHILS # (AUTO) 0.1 (0.0-0.4); EOSINOPHILS % 0.6 % (0.0-6.0); HEMATOCRIT 28.9 % (38.2-49.6); HEMOGLOBIN 9.5 g/dL (14.0-18.0); LYMPHOCYTES # (AUTO) 1.3 (1.0-3.2); LYMPHOCYTES % 12.7 % (18.0-39.1); MEAN CORPUSCULAR HEMOGLOBIN 29.2 pg (28-32); MEAN CORPUSCULAR HGB CONC 32.9 g/dL (31-35); MEAN CORPUSCULAR VOLUME 88.9 fL (81-99); MONOCYTES # (AUTO) 0.9 (0.2-0.8); MONOCYTES % 8.6 % (4.4-11.3); NEUTROPHILS % 76.2 % (38.7-80.0); PLATELET COUNT 129 x10e3/uL (140-360); RED BLOOD COUNT 3.25 x10e6/uL (4.3-5.7)
[2017-03-30] MEDS: TIOTROPIUM 18 MCG INH POWDER INH SCH (06:00)
[2017-03-30 06:33] LABS: ANION GAP 10.9 mmol/L (8-16); BLOOD UREA NITROGEN 17 mg/dL (7-26); BUN/CREATININE RATIO 15 (6-25); CALCIUM 8.7 mg/dL (8.4-10.2); CARBON DIOXIDE 25 mmol/L (22-29); CHLORIDE 110 mmol/L (98-107); CREATININE, SERUM 1.15 mg/dL (0.72-1.25); EST GLOMERULAR FILTRATION RATE > 60 ML/MIN (60-); GLUCOSE 167 mg/dL (74-118); MAGNESIUM 1.6 MG/DL (1.3-2.1); SODIUM 142 mmol/L (136-145)
[2017-03-30 06:36] LABS: POTASSIUM 3.9 mmol/L (3.5-5.1)
[2017-03-30] MEDS: FAMOTIDINE 20 MG TAB PO SCH ×2 (07:30→16:32)
[2017-03-30] MEDS: FERROUS SULFATE 325 MG TAB PO SCH ×2 (08:00→16:34)
[2017-03-30] MEDS: TOBRAMYCIN 40MG/ML 30ML MDV INH SCH (08:04)
[2017-03-30] MEDS: ASCORBIC ACID 500 MG TAB PO SCH ×2 (09:00→16:34)
[2017-03-30] MEDS: FOLIC ACID 1 MG TAB PO SCH (09:00)
[2017-03-30] MEDS: PREDNISONE 10 MG TAB PO SCH ×3 (09:00→17:00)
[2017-03-30] MEDS: MAGNESIUM OXIDE 400 MG TAB PO SCH ×2 (09:00→16:31)
[2017-03-30] MEDS: CALCIUM CARBONATE 500 MG CHEWABLE TABS PO SCH ×2 (09:00→16:31)
[2017-03-30] MEDS: MULTIVITAMINS/MINERALS TAB PO SCH ×2 (09:00→13:39)
[2017-03-30] MEDS: INSULIN LISPRO 100 UNIT/1 ML 3ML VIAL SQ SCH ×3 (09:00→16:30)
[2017-03-30] MEDS ORDERED: MUPIROCIN 2% OINT 22 GM TUBE TOP SCH (09:00)
--- NOTE | 2017-03-30 09:02 | Progress Note ---
DATE: March 30, 2017 SUBJECTIVE: The patient is fairly stable. He is confused. He is in no acute distress. He is not coughing much currently. No dyspnea at rest. No report of vomiting or diarrhea. No adverse medication reaction reported. OBJECTIVE: VITAL SIGNS: In the past 24 hours, maximum temperature was up to 99 degrees Fahrenheit. GENERAL: He is hemodynamically stable. HEENT: His upper lip lesions are scabbing. There is no pallor, no icterus. No oropharyngeal lesions. NECK: Supple. CHEST: Symmetric. LUNGS: Sounds coarse. HEART: Sounds are regular. There is no new murmur. ABDOMEN: Soft. Bowel sounds are present. EXTREMITIES: No acute erythema of his extremities. His white count is 10.4. His creatinine 1.1. There are no new positive culture reports. IMPRESSION: He is on treatment for chronic obstructive pulmonary disease exacerbation and respiratory infection with Pseudomonas. He is currently afebrile. There is no significant leukocytosis. I suggest continue same treatment. Monitor clinical response of treatment. Job#: [id number]
--- NOTE | 2017-03-30 09:20 | Progress Note ---
DATE: March 30, 2017 Patient was seen and examined today. Patient appeared comfortable. No overnight events noted. No chest pain, headache or dizziness. Current hemoglobin and platelet count are stable. PHYSICAL EXAMINATION GENERAL: Alert, awake and lethargic. HEENT: Normocephalic and atraumatic. Sclerae pink. Conjunctivae clear. NECK: Supple. CHEST: Clear to auscultation. CARDIOVASCULAR: Regular rate and rhythm. ABDOMEN: Soft and nontender. EXTREMITIES: No clubbing, cyanosis or edema. SOLIDWORKS MECHANICAL DESIGNER: Intact. LABS AND IMAGING: Reviewed. ASSESSMENT AND PLAN: Patient with a history of multiple medical conditions, including rheumatoid arthritis, hypertension, smoking, chronic obstructive pulmonary disease, admitted with shortness of breath, fever and currently following with infectious disease specialist. Patient also has anemia and thrombocytopenia. Patient currently has pseudomonas infection. His hemoglobin is stable. Platelet count has improved. Clinical condition is improving. Medications of vancomycin ordered to discontinue, which could be part of the thrombocytopenia. At this point, continue current care. We do not recommend any intervention. Will follow the patient closely. Job#: [id number] PEARL
[2017-03-30] MEDS ORDERED: HYDRALAZINE HCL 20 MG/ML VIAL IV PRN (12:45)
[2017-03-30] MEDS: EPOETIN ALFA 10000 UNIT/ML VIAL SC SCH (13:39)
[2017-03-30] MEDS: GUAIFENESIN 600 MG TAB PO PRN (13:39)
[2017-03-30] MEDS: VALACYCLOVIR HCL 500 MG TAB PO SCH (13:44)
--- NOTE | 2017-03-30 15:15 | Progress Note ---
DATE: PULMONARY/CRITICAL CARE PROGRESS NOTE SUBJECTIVE: The patient is more alert but still has some intermittent confusion. He has less congestion. He has less cough. OBJECTIVE VITAL SIGNS: The patient is afebrile. The vital signs are stable. The blood pressure is elevated at 193/94 and the pulse is 85. HEENT: Examination shows no facial swelling or erythema. NECK: Examination shows no JVD or thyromegaly. CARDIAC: Exam reveals a regular rate and rhythm with a normal S1 and S2. There are no murmurs or rubs. LUNGS: Auscultation reveals no rhonchi. ABDOMEN: Soft and nontender. There is no rebound or guarding. EXTREMITIES: Examination shows no leg edema or calf tenderness. There is no cyanosis or clubbing. SKIN: Examination shows no rashes. NEUROLOGICAL: Exam shows the patient to be awake and more alert but still somewhat disoriented. LABORATORY DATA: The blood counts are within normal limits. The creatinine is improved to 1.5. IMPRESSION 1. Influenza. 2. Pseudomonas tracheobronchitis. 3. Metabolic encephalopathy. PLAN 1. Taper antibiotics as appropriate. Tracheobronchitis should be treatable with less antibiotics than pneumonia. 2. Taper antipsychotic medications and benzodiazepines as tolerated. 3. Monitor mental status. 4. Physical therapy. 5. Arrange for disposition. Job#: [id number] SONIDO
[2017-03-30] MEDS ORDERED: MUCINEX600 MG PO (16:29)
[2017-03-30] MEDS ORDERED: ALBUTEROL2.5 MG/3 M NEB (16:29)
[2017-03-30] MEDS ORDERED: MAXIPIME1 GM IV (16:29)
[2017-03-30] MEDS ORDERED: Multivitamins/Minerals PO (16:29)
[2017-03-30] MEDS ORDERED: IPRATROPIU0.2 MG/1 M NEB (16:29)
[2017-03-30] MEDS ORDERED: FAMOTIDINE20 MG PO (16:29)
[2017-03-30] MEDS ORDERED: EPOGEN10000 UNIT SC (16:29)
[2017-03-30] MEDS ORDERED: MAGNESIUM OXID400 MG PO (16:29)
[2017-03-30] MEDS ORDERED: PREDNISONE10 MG PO (16:29)
[2017-03-30] MEDS ORDERED: Calcium Carbonate 500MG Chew PO (16:29)
[2017-03-30] MEDS ORDERED: Insulin Lispro SQ (16:29)
[2017-03-30] MEDS ORDERED: HALOPERIDOL5 MG/1 M1 IM (16:29)
[2017-03-30] MEDS ORDERED: DEXTROSE 50%-WA50 M1 IV (16:29)
[2017-03-30] MEDS ORDERED: TOBRAMYCIN40 MG/1 M1 INH (16:29)
[2017-03-30] MEDS ORDERED: FEOSOL325 MG PO (16:29)
[2017-03-30] MEDS ORDERED: HYDRALAZIN20 MG/1 ML IV (16:29)
[2017-03-30] MEDS ORDERED: ASCORBIC ACID500 MG PO (16:29)
[2017-03-30] MEDS ORDERED: ALPRAZOLAM0.25 MG PO (16:29)
[2017-03-30] MEDS ORDERED: LORAZEPAM2 MG/1 M1 IM (16:29)
[2017-03-30] MEDS ORDERED: VALTREX500 MG PO (16:29)
[2017-03-30] MEDS: MONTELUKAST SODIUM 10 MG TAB PO SCH (16:31)
--- NOTE | 2017-03-30 17:06 | Progress Note ---
DATE: March 29, 2017 PSYCHIATRIC PROGRESS NOTE Upon evaluation today, the patient is found to be lying in the bed with a sitter in the room. The patient is alert, awake and oriented to self. He is intermittently restless. He at times is trying to get out of the bed. He is getting p.r.n. IM medication. He is currently not on any scheduled medication as Dr. Petersen evaluated the patient on the and spoke to the manager strategy and discussed all scheduled medications. The patient is waiting to be discharged to the retirement. No suicidal threats reported. ASSESSMENT: Unspecified psychosis; rule out dementia. PLAN 1. Continue with Ativan 0.5 mg IM q.6 h. p.r.n. 2. Continue with Haldol 2 mg IM q.6 h. p.r.n. 3. Continue Xanax 0.25 mg p.o. q.8 h. p.r.n. 4. Continue Zyprexa 2.5 mg p.o. q.6 h. p.r.n. Dictated by: MÓNICA Quinones Job#: [id number]
--- NOTE | 2017-03-30 18:29 | Progress Note ---
DATE: March 30, 2017 PSYCHIATRIC PROGRESS NOTE SUBJECTIVE: The patient is found to be lying on her bed with a sitter. He is restless and trying to get out of bed. He is not following commands. He is not answering any questions. Discussed with the patient's daughter who is in the unit. Daughter states for the last 2 days the patient has been confused, restless. He is getting p.r.n. medication at night. He is not sleeping at night. They feel that Ativan may make him more agitated. They want scheduled medications. The patient's family members state that he uses chewing tobacco, and may be withdrawing from nicotine and became more irritable. This is a possibility. The patient will be discharged today to [facility] for further care. Discussed with Dr. Petersen. Will adjust medications tonight. ASSESSMENT: Unspecified psychosis; rule out dementia. PLAN 1. Add Zyprexa 5 mg p.o. nightly. 2. Continue Zyprexa 2.5 mg p.o. q.6 h. p.r.n. 3. Discontinue Ativan p.r.n. IM. 4. Continue with Haldol 2 mg IM q.6 h. p.r.n. 5. Nicotine patch 14 mg q. day p.r.n. for smoking cessation. Dictated by: MÓNICA Quinones Job#: [id number]
[2017-03-30] MEDS ORDERED: NICOTINE 14 MG/EA PATCH TOP PRN (18:30)
--- NOTE | 2017-03-30 19:30 | Discharge Summary ---
ADMITTING DIAGNOSES 1. Severe sepsis with acute kidney injury. 2. Acute exacerbation of emphysema. 3. Acute respiratory failure/positive influenza screen. 4. Hypernatremia. 5. Hyperglycemia. 6. Acute kidney injury. DISCHARGE DIAGNOSES 1. Severe sepsis with acute kidney injury. 2. Acute exacerbation of emphysema. 3. Acute respiratory failure/positive influenza screen. 4. Hypernatremia. 5. Hyperglycemia. 6. Acute kidney injury. 7. Rule out cerebrovascular accident. HISTORY: The patient has a history of rheumatoid arthritis, hypertension, emphysema, cigarette abuse and hearing deficit. He has had a back and colon surgery with no history of colon cancer. HOSPITAL COURSE: An 81-year-old male who presented with a history of emphysema, now developing shortness of breath and cough, worsening thrombocytopenia during hospital stay. After a few days of antibiotics, the patient spiked a fever, so infectious disease was consulted. His sputum culture showed Pseudomonas. The patient was started on cefepime, vancomycin and tobramycin nebs. Chest x-ray showed no infiltrates. The etiology of his fevers were unclear. Blood cultures and urine cultures were negative. ID discontinued the Levaquin as the patient needed a change of antibiotics, but the Levaquin caused confusion in the patient, we assume, because we did a CT and an MRI of the brain which were both negative. The patient was alert, oriented and ambulatory at admission. After receiving the Levaquin, the patient became confused and aggressive. He hit many nurses in attempts to get out of bed and he continues to injure himself by scratching and clawing at himself. Antibiotics were changed again per ID. Then, psychiatry was consulted for his aggression, started him on Seroquel, Geodon, Haldol. Through the hospital course, those psychiatric medications were tapered down in an effort to wake the patient up. On the day of discharge, WBC was 10.43, hemoglobin 9.5, hematocrit 28.9, platelet count of 129,000, sodium 142, potassium 3.9, creatinine 1.14, GFR over 60, BUN of 17, magnesium of 1.6 and calcium of 8.7, ammonia of 41. The patient will transfer to [facility] per family request as he lives by himself and no one is able to care for him. He is unsafe to discharge home, and the patient's family would prefer [facility] over a group home facility. The patient is likely to be in a veil bed at [facility] as a sitter is not available and he is a fall risk. We will follow the patient at [facility]. Dictated by: Kathie Arboleda NP TWIN WOODS MD Job#: [id number]
[2017-03-30] MEDS ORDERED: OLANZAPINE 5 MG TAB PO SCH (21:00)
== END 2017-03-30 19:31 | DRG 871 ==
LOC: ER 09:42 → ERHOLD 14:32 → IMCU 03-19 16:25
PROVIDERS: ADMIT Internal Medicine; ATTEND Internal Medicine
PROC: 02HV33Z Insertion of Infusion Device into Superior Vena Cava, Percutaneous Approach (ICD-10-PCS; principal; 2017-03-25)
DX: A41.9 Sepsis, unspecified organism (principal); J96.01 Acute respiratory failure with hypoxia; N17.9 Acute kidney failure, unspecified; G93.40 Encephalopathy, unspecified; J11.08 Influenza due to unidentified influenza virus with specified pneumonia; J15.1 Pneumonia due to Pseudomonas; D69.59 Other secondary thrombocytopenia; E87.0 Hyperosmolality and hypernatremia; J09.X2 Influenza due to identified novel influenza A virus with other respiratory manifestations; J44.1 Chronic obstructive pulmonary disease with (acute) exacerbation; F05 Delirium due to known physiological condition; F17.223 Nicotine dependence, chewing tobacco, with withdrawal; R65.20 Severe sepsis without septic shock; M06.9 Rheumatoid arthritis, unspecified; H91.90 Unspecified hearing loss, unspecified ear; G89.29 Other chronic pain; M54.9 Dorsalgia, unspecified; T50.905A Adverse effect of unspecified drugs, medicaments and biological substances, initial encounter; B00.1 Herpesviral vesicular dermatitis; D63.8 Anemia in other chronic diseases classified elsewhere; T38.0X5A Adverse effect of glucocorticoids and synthetic analogues, initial encounter; E87.6 Hypokalemia; E83.51 Hypocalcemia; E83.42 Hypomagnesemia; Z86.718 Personal history of other venous thrombosis and embolism; Z79.01 Long term (current) use of anticoagulants; R73.9 Hyperglycemia, unspecified
CPT/HCPCS: 36415; 36569; 36600; 70450; 70551; 71010; 71020; 80048; 80053; 80061; 81001; 82140; 82550; 82553; 82607; 82728; 82746; 82805; 82948; 83036; 83540; 83605; 83735; 83880; 84466; 84484; 85025; 85379; 85384; 85610; 85730; 86022; 87040; 87070; 87086; 87186; 87205; 87400; 93005; 93306; 94640; 94660; 96360; 96372; 97139; 99284; J0456; J0610; J0692; J0696; J1630; J1644; J1720; J2060; J2920; J3260; J3480; J3486; J7030; J7050; Q4081